=== PATIENT | male | born 1950 | race Caucasian/White ===

== ENCOUNTER 2018-01-18 07:43 | Day surgery (SDC) | payer MEDICARE, SELFPAY ==
[2018-01-18] VITALS (7 sets, daily range): BP systolic 91–131; BP diastolic 50–84; PULSE 45–59; RESP 16; TEMP 36.3–36.9; O2SAT 97–99; BMI 25.9
--- NOTE | 2018-01-18 09:00 | COLBX_PTH ---
PATIENT: ADENIKE HERNANDEZ LOC: EN U#:[id number] AGE/SX: 67/M ROOM: RE01/18/[address]: Dr. Eugenio Traylor MD : [id number] BED: DIS: 01/18/2018 SPEC #: [id number] RECD: 01/18/18 09:55 STATUS: YOLANDA RYANN #: [id number] ANAYELI: 01/18/18 09:[address]: Eugenio Traylor DEPT: SURGICAL PATHOLOGY RECD BY: Surendra Dueñas ENTERED: 01/18/18 10:16 SP TYPE: COLON BX OTHR DR: Dr. Horacio Shields MD Tissues: A - Transverse colon B - Descending colon Procedures: Surgery Specimen Level IV HEADER OPERATION: Colonoscopy PRE-OP DIAGNOSIS: Screening TISSUE SUBMITTED: A ? Mid transverse polyp, B ? Descending colon polyp biopsy MICROSCOPIC DIAGNOSIS A. Mid transverse colon polyp, biopsy: Fragments of fecal material. See comment. B. Descending colon polyp, biopsy: Fragment of colonic mucosa, no pathologic diagnosis. NELIDA:jojo 01/21/18 COMMENT A. Colonic mucosal tissue is not identified in the submitted specimen. MICROSCOPIC DESCRIPTION Slides are reviewed. GROSS DESCRIPTION A - Received in fixative is one container labeled with the patient's name and designated mid transverse polyp. The specimen consists of multiple irregular fragments of tran-brown material predominantly consists of fecal material that in aggregate measure 2 x 0.5 x 0.1 cm. The specimen is totally submitted in one cassette. B - Received in fixative is one container labeled with the patient's name and designated descending colon polyp biopsy. The specimen consists of one irregular fragment of light tran soft tissue that measures 0.6 x 0.2 x 0.1 cm. The specimen is totally submitted in one cassette. / NELIDA:jojo 01/18/18 TC:4 CPT: 46988 x2
--- NOTE | 2018-01-18 09:09 | PCM.OPRPT ---
Problem List (1) Screening for intestinal cancer Status: Acute Report of Operation Date of Procedure: 01/18/18 Pre-Operative Diagnosis: Screening for intestinal cancer Post-Operative Diagnosis: Scattered diverticulosis, sessile polyp of the transverse colon, diminutive polyp of the descending colon Surgery/Procedure Performed:: Colonoscopy with hot snare polypectomy and cold forceps biopsy Description of Surgical Findings:: Amount informed consent was obtained. 67-year-old gentleman taken to the endoscopy suite. He was placed in a left lateral decubitus position. 75 mg Demerol and 3.5 mg of Versed were given as intravenous sedation. Digital rectal exam performed. 2-3+ enlarged slightly firm prostate without focal mass noted. Moderate grade 2 internal hemorrhoids. Flexible colonoscope was inserted in the rectum and advanced through the sigmoid colon descending and transverse colon with ease. Some slight transabdominal pressure was required to get the scope to go to the cecum. Bowel prep was quite good. The cecum and ileocecal valve area was nicely achieved. The scope was then carefully withdrawn from the cecum and ascending colon. In the mid transverse colon a sessile semi-pedunculated polyp was identified. This measured about 9 mm. Photographs obtained. Hot snare cautery was used to resect and retrieved. The scope was then further withdrawn. There was some scattered diverticulosis noted throughout the colon but no areas of concentration. There was then a 4 mm sessile appearing polyp of the descending colon. This was very nonspecific. Cold soap forceps was used to sample and eradicate this area. The scope was further withdrawn without additional abnormality. The scope was retroflexed within the rectum hemorrhoidal changes noted no active bleeding. Excess fluid and air was aspirated free the procedure was completed with the patient tolerating it well. Impression Sessile polyps of the mid transverse colon and of the descending colon. Pathology pending. Minimal scattered diverticulosis The patient has not had a previous colonoscopy. Next colonoscopy recommended in 3 years pending pathology. The patient will proceed with his planned hernia repair. CC: Dr. NICKOLAS Shields Medications were given at 0851. The procedure was started at 0853. The cecum was reached at 0856.46. The procedure was completed at 0905.44. Eugenio Traylor M.D., F.A.C.S. Type of Anesthesia:: IV Sedation
== END 2018-01-18 10:33 | disposition home or self-care (01) ==
LOC: EN 07:44 → AC 07:46
PROVIDERS: Family Provider Family Medicine; PCP Family Medicine; Visit Provider Surgery
PROC: 0DJD8ZZ Inspection of Lower Intestinal Tract, Via Natural or Artificial Opening Endoscopic (ICD-10-PCS; CPT 45378; principal; 2018-01-18 08:40)
DX: Z12.11 Encounter for screening for malignant neoplasm of colon (principal); K57.90 Diverticulosis of intestine, part unspecified, without perforation or abscess without bleeding; K63.5 Polyp of colon; K64.8 Other hemorrhoids; K40.90 Unilateral inguinal hernia, without obstruction or gangrene, not specified as recurrent; K46.9 Unspecified abdominal hernia without obstruction or gangrene
CPT/HCPCS: 45384; 88305; 99152; 99153; J7120

== ENCOUNTER 2018-01-23 07:24 | Day surgery (SDC) | payer MEDICARE, SELFPAY ==
--- NOTE | 2018-01-18 05:45 | EKG12_ITS ---
Test Reason : PRE OP Blood Pressure : / mmHG Vent. Rate : 052 BPM Atrial Rate : 052 BPM P-R Int : 170 ms QRS Dur : 100 ms QT Int : 464 ms P-R-T Axes : 039 023 059 degrees QTc Int : 431 ms Sinus bradycardia Otherwise normal ECG No previous ECGs available Confirmed by EUGENE COLIN ([id number]), general expeditor JAIMIE YODER ([id number]) on 01/21/2018 2:55:36 PM Referred By: Eugenio Traylor Confirmed By:EUGENE COLIN
[2018-01-18 10:01] LABS: Hematocrit 42.2 % (40-54); Hemoglobin 14.3 g/dl (13.0-16.5); Mean Corp Hgb Conc 33.9 g/gl (32-36); Mean Corpuscular Hgb 29.2 pg (27.0-32.0); Mean Corpuscular Volume 86.1 fL (80-94); Mean Platelet Vol. 9.7 fl (6.2-12.0); Platelet Count 208 K/mm3 (150-450); RBC Distribution Width CV 12.9 % (11.6-14.6); RBC Distribution Width SD 40.6 fl (35.1-43.9); White Blood Count 5.1 K/mm3 (4.4-11.0)
[2018-01-18 10:03] LABS: Scan Indicated on CBC? Y/N NO
[2018-01-18 10:13] LABS: Anion Gap 4 (5-15); BUN 12 mg/dL (7-18); BUN/Creat Ratio 13.1 RATIO (10-20); Calcium,Total 8.6 mg/dL (8.5-10.1); Chloride 105 mmol/L (98-107); Creatinine, Serum 0.92 mg/dL (0.70-1.30); EST Glomerular Filtration Rate 87 mL/min (>60); Est Glom Filt Rate - Afr Amer 106 mL/min (>60); Glucose 144 mg/dL (74-106); Potassium 4.2 mmol/L (3.5-5.1); Sodium Level 138 mmol/L (136-145)
[2018-01-23 07:49] VITALS: BP 144/94; PULSE 65; RESP 16; TEMP 36.9; O2SAT 97; BMI 26.2
[2018-01-23 08:11] LABS: Partial Thromboplast Time 32.5 Seconds (24.1-36.2)
--- NOTE | 2018-01-23 08:48 | DCINST_ITS ---
Discharge Diet: Light diet - advance as tolerated - if you have questions about your diet instructions, please talk to you doctor. Discharge Activity: May Not Drive - for 1 week or while taking narcotic pain medicine. May shower in (days): 1 Lifting Restrictions: 10 pounds Call your doctor if your incision/area has: Continuous Slow Oozing, Sudden Increased Bleeding, Increased Pain/ Swelling, Increased Redness, Foul Smelling Discharge Call your doctor if you observe: Fever of 101 or Higher Suture Line Care: Avoid Pulling/Pushing, Avoid Pinching/Bending Additional Dressing/Incision Instructions:: Change or remove dressing in 4 days. Leave steri-strips in place for 1 week. Allergies/Adverse Reactions: Allergies No Known Allergies Allergy (Verified 01/18/18 08:35) Medications to take at Discharge Phenobarbital 64.8 mg PO DAILY 01/16/18 Hydrocodone Bitart/Apap 5-325 [Jackson 5MG-325MG] 1 tablet PO Q6H PRN PRN 3 Days # 10 tablet 01/23/18 The following prescriptions were given: Hydrocodone Bitart/Apap 5-325 [Jackson 5MG-325MG] 1 tablet PO Q6H PRN PRN 3 Days # 10 tablet PRN Reason: Pain Primary Care Physician: Horacio Shields MD [Primary Care Provider] - Please Follow Up With: Eugenio Traylor MD - [phone] When: Call to make an appointment to be seen in about 10 days.
[2018-01-23] MEDS: Cefazolin 2 GM in 0.9% Normal Saline 100 ML IV (08:52)
[2018-01-23] MEDS: Bupivacaine Mpf 0.5% 30 ML VIAL (09:48)
--- NOTE | 2018-01-23 09:53 | OP.PCM_ITS ---
Problem List (1) Left inguinal hernia Status: Acute Report of Operation Date of Procedure: 01/23/18 Pre-Operative Diagnosis: Left inguinal hernia Post-Operative Diagnosis: Indirect and direct left inguinal hernia Surgery/Procedure Performed:: Laparoscopic left inguinal herniorrhaphy Description of Surgical Findings:: Timeout and informed consent was obtained. 67-year-old gentleman was taken to the operating room. He was placed supine on the table. He underwent general endotracheal intubation anesthesia. Ancef 2 g were given intravenously preoperatively. The abdomen sterilely prepped draped. 0.5% Marcaine was used as local anesthetic. Total 30 cc was used. Skin sites were pre-anesthetized. A vertical infraumbilical incision created. Holding sutures of 0 Vicryl placed. Varies needle inserted. Saline drop test performed. The abdomen was insufflated with CO2 to a pressure of 10 mmHg pressure. Brooke trocar inserted. Brooke laparoscope inserted. Under visualization with no evidence any superficial abnormalities. The right groin appear to be solid and intact. There was evidence of a very large direct defect on the left with a smaller indirect defect. Five-minute trochars were placed in the right and left lower quadrant to direct visualization. A ileal inguinal nerve block was performed with Marcaine. The peritoneum superior lateral to the internal ring was incised and carried medially. Tediously the peritoneum was completely dissected free and was completely inverted from the direct sac. The indirect area also completely dissected free I dissected over past the midpoint of the pubic tubercle urinary bladder at the initiation was actually quite distended but I was able to safely dissected free bluntly. After very generously mobilizing the peritoneum was looking at the large direct and somewhat smaller indirect defects. I selected a Bard 3D max mesh lot number [id number] reference #[id number] with an expiry date of 03/26/2021. I placed that so as to nicely cover the defect areas. It appeared to have a very nice positional lie. I secured it laterally superiorly medially with secure strap. Lot number [id number] with an expiry date of 09/18/2019 [place] that I had excellent positioning of the mesh. The peritoneum was approximated to itself the secure strap and complete obliteration to the mesh was achieved. Trochars were removed under visualization. The abdomen was allowed to deflate of the CO2. The fascia at the umbilicus approximated with interrupted 0 Vicryl figure 8 suture. Skin edges approximated up to 4 Monocryl subdermal stitches. Steri-Strips Telfa and OpSite dressings applied. Sponge and instrument and needle counts were reported to the surgeon be correct. Blood loss was minimal. Specimens none. Drains none. He was taken to the recovery area in satisfactory condition Eugenio Traylor M.D., F.A.C.S. Type of Anesthesia:: General Anesthesiologist: Monae Carter
[2018-01-23 10:08] VITALS: BP 128/78; BP 144/94; PULSE 62; RESP 14; TEMP 36.6; O2SAT 98
[2018-01-23 10:15] VITALS: BP 127/74; BP 144/94; PULSE 64; RESP 14; O2SAT 100
[2018-01-23 10:30] VITALS: BP 129/82; BP 144/94; PULSE 63; RESP 16; O2SAT 98
[2018-01-23 10:47] VITALS: BP 143/83; BP 144/94; PULSE 69; RESP 16; TEMP 36.7; O2SAT 99
[2018-01-23 12:11] VITALS: BP 144/94; BP 168/82; PULSE 78; RESP 18; TEMP 36; O2SAT 98
== END 2018-01-23 12:11 | disposition home or self-care (01) ==
LOC: SDC 07:28 → AC 07:29
PROVIDERS: Family Provider Family Medicine; PCP Family Medicine; Visit Provider Surgery
PROC: (CPT 49650; principal; 2018-01-23 09:00)
DX: K40.90 Unilateral inguinal hernia, without obstruction or gangrene, not specified as recurrent (principal); K46.9 Unspecified abdominal hernia without obstruction or gangrene; R00.1 Bradycardia, unspecified
CPT/HCPCS: 00840; 49650; 36415; 80048; 85027; 85730; 93005; J7120; C1781; J2405

== ENCOUNTER → 2018-07-03 11:31 | Outpatient (CLI) | payer MEDICARE, SELFPAY ==
--- NOTE | 2018-07-03 11:35 | RAD_ITS ---
STUDY: X-RAY - UNILATERAL RIBS ( LEFT ) WITH CHEST REASON FOR EXAM: Male, 68 years old. Fall yesterday. Left lower posterior rib pain. TECHNIQUE - RIBS: 4 view(s) of the ribs. TECHNIQUE - CHEST: Single PA view. COMPARISON: None. FINDINGS - RIBS: Acute fractures of the left ninth and 10th posterior ribs. FINDINGS - CHEST: The lungs are clear and expanded. There is no demonstrated pleural abnormality. Normal size heart. Normal mediastinum and jeanne. Normal visualized pulmonary arteries. Normal visualized aortic arch and descending thoracic aorta. Normal visualized thoracic spine. Acute fractures of the left ninth and 10th posterior ribs. Normal clavicles and shoulders. There is no demonstrated abnormality of the visualized soft tissue structures of the upper abdomen. RAD/Ribs Uni Min 3V w/PA Chest IMPRESSION: RIBS: Acute fractures of the left ninth and 10th posterior ribs. CHEST: Normal x-ray examination of the chest. Electronically Signed: John Beltrán MD at 12:15 EST , Service support ,
== END ==
PROVIDERS: Family Provider Family Medicine; PCP Family Medicine; Referring Provider Family Medicine; Visit Provider Family Medicine
DX: R07.81 Pleurodynia (principal)
CPT/HCPCS: 71101

== ENCOUNTER → 2021-09-22 09:53 | Outpatient (CLI) | payer MEDICARE, SELFPAY ==
[2021-09-22 12:11] LABS: Hematocrit 41.4 % (40-54); Hemoglobin 14.2 g/dL (13.0-16.5); Mean Corp Hgb Conc 34.3 g/dL (32-36); Mean Corpuscular Hgb 29.6 pg (27.0-32.0); Mean Corpuscular Volume 86.4 fL (80-94); Mean Platelet Vol. 10.9 fl (6.2-12.0); Platelet Count 294 K/mm3 (150-450); RBC Distribution Width CV 12.5 % (11.6-14.6); RBC Distribution Width SD 39.6 fl (35.1-43.9); Red Blood Count 4.79 M/mm3 (4.6-6.2); White Blood Count 6.6 K/mm3 (4.4-11.0)
[2021-09-22 12:28] LABS: AST(SGOT) 15 U/L (15-37); Alanine Aminotransfer ALT/SGPT 28 U/L (16-61); Albumin, Serum 3.6 g/dL (3.2-5.0); Alkaline Phosphatase 57 U/L (45-117); Anion Gap 5 (5-15); BUN 16 mg/dL (7-18); BUN/Creat Ratio 16.4 RATIO (10-20); Calcium,Total 9.4 mg/dL (8.5-10.1); Chloride 101 mmol/L (98-107); Creatinine, Serum 0.97 mg/dL (0.70-1.30); EST Glomerular Filtration Rate 81 mL/min (>60); Est Glom Filt Rate - Afr Amer 98 mL/min (>60); Globulin 3.7 g/dL (2.2-4.2); Glucose 297 mg/dL (74-106); Potassium 4.1 mmol/L (3.5-5.1); Protein, Total 7.3 g/dL (6.4-8.2); Sodium Level 135 mmol/L (136-145)
== END ==
PROVIDERS: PCP Family Medicine
DX: G40.909 Epilepsy, unspecified, not intractable, without status epilepticus (principal)
CPT/HCPCS: 36415; 80053; 80184; 85027

== ENCOUNTER 2022-02-27 10:09 | Inpatient (IN) | payer MEDICARE, SELFPAY ==
[2022-02-27] VITALS (13 sets, daily range): BP systolic 131–182; BP diastolic 59–89; PULSE 52–95; RESP 12–18; TEMP 36.2–36.8; O2SAT 94–98; BMI 36.7; BMI 27.8; BMI 26.4
--- NOTE | 2022-02-27 10:15 | CT_ITS ---
STUDY: CT HEAD STROKE PROTOCOL W/O CONTRAST INJECTION REASON FOR EXAM: Male, 71 years old. Neuro deficit, acute, stroke suspected RADIATION DOSAGE (If Supplied By Facility): CTDIvol = ( ) mGy, DLP = ( ) mGycm TECHNIQUE: Transaxial CT imaging of the brain was performed without administration of intravenous contrast material. Individualized dose optimization techniques were used for this CT. COMPARISON: No relevant priors. FINDINGS: There is no demonstrated dense artery sign or sulcal effacement or parenchymal edema by CT criteria. An old lacunar infarct with cystic volume loss is present in the posterior medial aspect of the right thalamic lobe. Normal soft tissue structures. Normal calvarium. There is mild cerebral atrophy with widening of the extra-axial spaces and ventricular dilatation. Normal white matter tracts of the cerebral hemispheres. Normal basal ganglia. Normal brainstem. Normal cerebellum. There is no intracranial hemorrhage. There are no findings of an acute ischemic infarction. Normal visualized paranasal sinuses. ASPECT score: 10 CT/STROKE Brain/Head without Cont IMPRESSION: 1. Old right thalamic lacunar infarct 2. No demonstrated acute infarct or intracranial hemorrhage N.B. : The above Results were Read Back by Derek Lovell MD to brian farrell MD, and understanding confirmed on 02/27/2022 10:31:53 (ET). Electronically Signed: Derek Lovell MD at 10:33 EDT ,
--- NOTE | 2022-02-27 10:15 | CT_ITS ---
STUDY: CTA HEAD AND NECK WITH CONTRAST REASON FOR EXAM: Male, 71 years old. Neuro deficit, acute, stroke suspected RADIATION DOSAGE (If Supplied By Facility): CTDIvol = ( 26.38 ) mGy, DLP = ( 942.52 ) mGycm TECHNIQUE: CT angiography was performed with a multi-detector CT scanner. Data acquisition was obtained from the skull base through the vertex following intravenous administration of IV 100mL Isovue-370. MIP images were reconstructed from the axial data set. Post-processing of the angiographic images was performed, with multiplanar reformation and 3D reconstruction. Individualized dose optimization techniques were used for this CT. COMPARISON: Noncontrast head CT dated February 27, 2022 FINDINGS: Normal bilateral petrous carotid arteries. There is calcified plaque formation of the right cavernous carotid artery, with a mild stenosis (less than 50%). There is calcified plaque formation of the left cavernous carotid artery, without a cross-sectional luminal stenosis. Normal right A1 segments of the anterior cerebral artery. Normal left A1 segments of the anterior cerebral artery. Normal intact anterior communicating artery (ACOM). Normal bilateral A2 segments of the anterior cerebral arteries. Normal right M1 and M2 segments of the middle cerebral arteries, with a normal M1 bifurcation. There is irregularity of the left M1 and M2 branches with minimal luminal narrowing, suggesting atherosclerotic plaque formation, without an occlusion. Normal right posterior communicating artery (PCOM). There is non-visualization of the left posterior communicating artery (PCOM). Normal bilateral vertebral arteries. Normal basilar artery with a normal basilar bifurcation. The visualized bilateral superior cerebellar (SCA) arteries are normal. Normal bilateral P1, P2 and visualized P3 segments of the posterior cerebral arteries. There is no demonstrated aneurysm of the [place]. There is no demonstrated abnormality of the visualized brain. AORTIC ARCH: There is atherosclerotic calcific plaque formation of the aortic arch and great vessels arising from the aortic arch, without a hemodynamically significant stenosis. There is a normal origin of the brachiocephalic, left common carotid, and left subclavian arteries. Normal origins of the brachiocephalic, left common carotid, and left subclavian arteries. RIGHT CAROTID ARTERIES: Normal right common carotid artery (CCA). There is mild atherosclerotic plaque formation with minimal narrowing of the right carotid bulb. Normal origin of the right internal carotid (ICA) artery without a hemodynamically significant stenosis. Normal visualized cervical portion of the right internal carotid artery. Normal origin of the right external carotid artery (ECA). LEFT CAROTID ARTERIES: Normal left common carotid artery (CCA). Normal left common carotid bulb. Normal origin of the left internal carotid (ICA) artery without a hemodynamically significant stenosis. Normal visualized cervical portion of the left internal carotid artery. Normal origin of the left external carotid artery (ECA). VERTEBRAL ARTERIES: Normal bilateral vertebral arteries, with exception of mild atherosclerotic stenosis due to calcified plaque at the left vertebral artery/subclavian junction. CT/STROKE CTA Head AND Neck W/Con IMPRESSION: 1. No major intracranial arterial occlusion or hemodynamically significant stenosis 2. 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 Mild atherosclerotic stenosis of the left vertebral artery/subclavian arterial junction. 4. Mild atherosclerotic plaque and stenosis in the right carotid bulb. N.B. : The above Results were Read Back by Derek Lovell MD to brian farrell MD, and understanding confirmed on 02/27/2022 10:56:03 (ET). Electronically Signed: Derek Lovell MD at 10:57 EDT ,
--- NOTE | 2022-02-27 10:15 | EKG12_ITS ---
Test Reason : stroke Blood Pressure : / mmHG Vent. Rate : 068 BPM Atrial Rate : 068 BPM P-R Int : 204 ms QRS Dur : 100 ms QT Int : 422 ms P-R-T Axes : 051 009 058 degrees QTc Int : 448 ms Normal sinus rhythm Normal ECG Confirmed by EMRE THIBODEAUX, YOAN ([id number]), primer expeditor and drier RENE OROZCO ([id number]) on 02/28/2022 1:09:41 PM Referred By: Confirmed By:YOAN ANDREA MD
--- NOTE | 2022-02-27 10:16 | EDS_ITS ---
HPI History of Present Illness Chief Complaint: Neuro S/Sx Narrative Narrative: Patient woke up with symptoms. He woke up with some slurry speech and difficulty getting all his words out. He also has some right-sided facial droop. He woke up at 615 and went to bed around 10 PM. He showed up to the ED around 10 AM. No recent trauma. He is not anticoagulated, he has no weakness in his arms or legs. He has no vision changes. [facility] PFS Medical History Hernia Left inguinal hernia Seizure Home Medications phenobarbital 64.8 mg tablet 64.8 mg PO DAILY SEIZURES 01/16/18 [History Last Taken 01/23/18 06:30] Allergy/AdvReac Type Severity Reaction Status Date / Time No Known Allergies Allergy Verified 02/27/22 10:15 Family History Father CAD (coronary artery disease) Surgical History S/P appendectomy s/p laceration repair right arm S/P laparoscopic hernia repair (~12/2017) Social History Smoking Status: Never smoker ROS ROS ED ROS Narrative Past medical history: Reviewed, includes seizure disorder and hypertension. His blood sugar is quite high in the ED but he tells me he is not a diabetic to his knowledge. Medications: Reviewed Social history: Noncontributory Review of systems: All systems negative except as indicated General: No fever Eyes: No visual changes ENT: No upper airway congestion, normal voice. Right-sided facial droop Neck: No neck pain Cardiovascular: No chest pain Respiratory: No shortness of breath or cough Gastrointestinal: No abdominal pain, nausea vomiting or diarrhea Genitourinary: No dysuria Musculoskeletal: Denies myalgias no difficulty with ambulation Skin: No rash Neurological: As in HPI Psych: No recent behavioral changes Hematologic: No easy bleeding or easy bruising EXAM Physical Exam Narrative Exam Narrative: Physical exam General: Well nourished, Well developed, No Acute Distress Head: Normocephalic, Atraumatic Eyes: Conjunctiva not pale ENT: Moist mucous membranes Neck: Supple, Nontender, No lymphadenopathy Cardiovascular: Regular rate, Regular rhythm Respiratory: No distress, CTA bilaterally Abdomen: Soft, Nontender, Nondistended Back: Nontender, Normal Inspection. Negative for: CVA tenderness Extremities: Nontender, No edema Skin: Normal color, No rash Neurological: See NIH stroke scale Psychological: Normal affect Const Vital Signs: 02/27/22 10:11 02/27/22 10:35 02/27/22 10:35 Temperature 97.1 F L Temperature Source Temporal Pulse Rate 95 69 Respiratory Rate 15 13 Blood Pressure 182/89 H 165/86 H Blood Pressure Mean 120 112 Pulse Ox 97 97 Oxygen Delivery Method Room Air Room Air Room Air 02/27/22 10:45 Temperature Temperature Source Pulse Rate 56 L Respiratory Rate 12 Blood Pressure 175/59 H Blood Pressure Mean 97 Pulse Ox 96 Oxygen Delivery Method Room Air STROKE Vital Signs/Narrative: Vital Signs Temp Pulse Resp BP Pulse Ox O2 Del Method 02/27/22 10:45 56 L 12 175/59 H 96 Room Air 02/27/22 10:35 Room Air 02/27/22 10:35 69 13 165/86 H 97 Room Air 02/27/22 10:11 97.1 F L 95 15 182/89 H 97 Room Air NIHSS Initial: 1a Level of Consciousness: 0 1b LOC Questions (Score 2 if aphasic/stupor): 0 1c LOC Commands (Only score 1st attempt): 0 2 Best Gaze (If aphasic, use reflexive mvmts.): 0 3 Visual: 0 4 Facial Palsy: 1 5 Motor Arm Right (UN = amputation/fusion): 0 5 Motor Arm Left: 0 6 Motor Leg Right: 0 6 Motor Leg Left: 0 7 Limb ataxia (Only + if out of proportion): 0 8 Sensory (Aphasia/stupor=0 or 1, coma=2): 0 9 Best Language: 1 10 Dysarthria (mute, coma=2, intubated=UN): 1 11 Extinction and Inattention (only scored if +): 0 Total Score: 3 MDM MDM MDM Narrative Medical decision making narrative: Patient's work-up is unremarkable other than an old right thalamic lacunar infarct. He still has stroke symptoms, I discussed with stroke neurologist he does not meet criteria for tPA secondary to time of onset and wake-up stroke. Incidentally he is found to have a glucose of 324 and he tells me that he does not know he is a diabetic. This will also have to be addressed inpatient. I called for admission. Lab Data Labs: Laboratory Results - last 24 hr 02/27/22 02/27/22 02/27/22 10:10 10:10 10:10 WBC 8.0 RBC 5.26 Hgb 15.3 Hct 45.2 MCV 85.9 MCH 29.1 MCHC 33.8 RDW Std Deviation 39.2 RDW Coeff of Sang 12.6 Plt Count 285 MPV 11.0 Immature Gran % (Auto) 0.400 Neut % (Auto) 64.9 Lymph % (Auto) 27.0 Nance % (Auto) 6.5 Eos % (Auto) 0.6 Baso % (Auto) 0.6 Absolute Neuts (auto) 5.2 Absolute Lymphs (auto) 2.15 Nucleated RBC % 0 PT 11.6 L INR 0.9 APTT 31.7 Sodium 135 L Potassium 4.1 Chloride 99 Carbon Dioxide 28.0 Anion Gap 8 BUN 17 Creatinine 0.99 Estim Creat Clear Calc 66.21 Est GFR (MDRD) Af Amer 95 Est GFR (MDRD) Non-Af 79 BUN/Creatinine Ratio 17.1 Glucose 324 H Calcium 9.5 Troponin I High Sens 6 Radiography Diagnostic Testing: Clinical Impression(s) from Imaging Studies Brain CT 02/27/22 10:15 IMPRESSION: 1. Old right thalamic lacunar infarct 2. No demonstrated acute infarct or intracranial hemorrhage N.B. : The above Results were Read Back by Derek Lovell MD to diogo farrell MD, and understanding confirmed on 02/27/2022 10:31:53 (ET). Electronically Signed: Derek Lovell MD at 10:33 EDT , ADDENDUM: 02/27/22 1040 IMPRESSION: 1. Old right thalamic lacunar infarct 2. No demonstrated acute infarct or intracranial hemorrhage N.B. : The above Results were Read Back by Derek Lovell MD to diogo farrell MD, and understanding confirmed on 02/27/2022 10:31:53 (ET). Electronically Signed: Derek Lovell MD at 10:33 EDT , Head/Neck CTA 02/27/22 10:15 IMPRESSION: 1. No major intracranial arterial occlusion or hemodynamically significant stenosis 2. 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 Mild atherosclerotic stenosis of the left vertebral artery/subclavian arterial junction. 4. Mild atherosclerotic plaque and stenosis in the right carotid bulb. N.B. : The above Results were Read Back by Derek Lovell MD to diogo farrell MD, and understanding confirmed on 02/27/2022 10:56:03 (ET). Electronically Signed: Derek Lovell MD at 10:57 EDT , Critical Care Time Critical Care Time: Yes Critical care time (excluding procedures): 30-74 minutes and - (Critical care time of 35 minutes. I attest that I spent 35 minutes of critical care time with this patient, this included time at the bedside, time discussing with radiologist, neurologist and medicine doctors, time documenting. The patient suffered acute stroke and decisions about tPA and other i) Discharge Plan Triage Chief Complaint: Neuro S/Sx ED Provider: Diogo Farrell Dx/Rx/DC Orders Clinical Impression: Acute stroke due to ischemia, Acute hyperglycemia, Dysarthria Prescriptions: No Action phenobarbital 64.8 MG tablet 64.8 mg PO DAILY Primary Care Provider: Horacio Shields Referrals: Horacio Shields MD [Primary Care Provider] - 2 Days Disposition Disposition: Acute Care Hospital [facility]
[2022-02-27 10:28] LABS: Absolute Lymphocyte Count 2.15 X10^3/uL (0.83-4.51); Absolute Neutrophil Count 5.2 X10^3/uL (2.0-7.7); Basophil# 0.05 X10^3/uL; Basophil% 0.6 % (0-1); Eosinophil# 0.05 X10^3/uL; Eosinophils% 0.6 % (0-5); Hematocrit 45.2 % (40-54); Hemoglobin 15.3 g/dL (13.0-16.5); Lymphocyte # 2.15 X10^3/ul (0.83-4.51); Mean Corp Hgb Conc 33.8 g/dL (32-36); Mean Corpuscular Hgb 29.1 pg (27.0-32.0); Mean Corpuscular Volume 85.9 fL (80-94); Monocyte# 0.52 X10^3/uL; Monocyte% 6.5 % (0-10); NRBC Flagged by Analyzer 0 % (0-5); Neutrophil # 5.16 X10^3/uL (2.7-7.7); Neutrophil % 64.9 % (47-70); Platelet Count 285 K/mm3 (150-450); RBC Distribution Width CV 12.6 % (11.6-14.6); RBC Distribution Width SD 39.2 fl (35.1-43.9); Red Blood Count 5.26 M/mm3 (4.6-6.2)
[2022-02-27 10:40] LABS: International Normalized Ratio 0.9; Prothrombin Time (Protime)PT. 11.6 SECONDS (11.7-14.9)
[2022-02-27 10:41] LABS: Partial Thromboplast Time 31.7 Seconds (24.1-36.2)
--- NOTE | 2022-02-27 10:42 | RAD_ITS ---
STUDY: X-RAY CHEST REASON FOR EXAM: Male, 71 years old. Neuro deficit, acute, stroke suspected Presents this morning after slurred speech noticed by patient and family members. Aphasia noticed as well. Symptoms on wakening at 0615, unknown LKW, BGL 321 TECHNIQUE: Single AP portable view of the chest. COMPARISON: July 03, 2018 FINDINGS: The lungs are clear and expanded. There is no demonstrated pleural abnormality. Normal size heart. Normal mediastinum and ejanne. Normal visualized pulmonary arteries. There is atherosclerotic calcification of the aortic arch with tortuosity. Normal visualized thoracic spine. Normal visualized ribs, clavicles, and shoulders. There is no demonstrated abnormality of the visualized soft tissue structures of the upper abdomen. RAD/Chest 1 View IMPRESSION: No acute process Electronically Signed: Derek Lovell MD at 11:32 EDT ,
[2022-02-27 10:43] LABS: Anion Gap 8 (5-15); BUN 17 mg/dL (7-18); BUN/Creat Ratio 17.1 RATIO (10-20); Calcium,Total 9.5 mg/dL (8.5-10.1); Chloride 99 mmol/L (98-107); Creatinine, Serum 0.99 mg/dL (0.70-1.30); EST Glomerular Filtration Rate 79 mL/min (>60); Est Glom Filt Rate - Afr Amer 95 mL/min (>60); Estimated Creatinine Clearance 66.21 ml/min; Glucose 324 mg/dL (74-106); Potassium 4.1 mmol/L (3.5-5.1); Sodium Level 135 mmol/L (136-145); Troponin-I HS 6 pg/mL (3.0-78.0)
--- NOTE | 2022-02-27 11:54 | ECHOD_ITS ---
Reason For Study: TIA/CVA Procedure This was a 2D Doppler, Color Flow transthoracic echocardiogram. Exam performed portable in patient room. Left Ventricle Normal LV size. Left ventricular systolic function is normal. The estimated ejection fraction is 60 %. No regional wall motion abnormalities noted. Right Ventricle Normal RV size. Normal systolic function. Atria Normal left atrium. Normal right atrium. Bubble contrast study negative for right to left interatrial shunt. Mitral Valve Normal mitral valve. Tricuspid Valve Normal tricuspid valve. Trivial tricuspid valve insufficiency. Aortic Valve Normal aortic valve. Trisinus/trileaflet aortic valve. Pulmonic Valve Normal pulmonic valve. Great Vessels Normal aortic root. The pulmonary artery is normal size. Normal inferior vena cava. Pericardium/Pleural No pericardial effusion. Medication Performed a rapid injection of agitated mix of 9 cc saline and 1cc air to assess for atrial septal defect. MMode/2D Measurements & Calculations LVIDd: 4.7 cm IVSd: 1.1 cm Ao root diam: 3.1 cm LVIDs: 3.1 cm LVPWd: 1.1 cm RVDd: 3.6 cm FS: 33.2 % LAV(MOD-bp): 29.1 ml LVAd ap4: 29.1 cm2 SV(MOD-sp4): 51.7 ml LAV(MOD-bp) Indexed: 15.1 ml/m2 LVLd ap4: 7.9 cm LAV(MOD-sp2): 36.1 ml EDV(MOD-sp4): 87.7 ml LAV(MOD-sp4): 24.6 ml EDV(sp4-el): 90.5 ml LVAs ap4: 17.2 cm2 LVLs ap4: 6.8 cm ESV(MOD-sp4): 36.0 ml ESV(sp4-el): 36.7 ml EF(MOD-sp4): 59.0 % EF(sp4-el): 59.5 % SV(sp4-el): 53.9 ml LA A4 area: 12.3 cm2 LA dimension(2D): 3.9 cm RA A4 area: 9.8 cm2 Doppler Measurements & Calculations MV E max sloan: 52.0 cm/sec Lat Peak E' Sloan: 6.8 cm/sec Med Peak E' Sloan: 6.4 cm/sec MV A max sloan: 73.8 cm/sec E/E' lat: 7.7 E/E' med: 8.1 MV E/A: 0.70 Ao V2 max: 113.6 cm/sec LV V1 max: 100.2 cm/sec PA V2 max: 98.7 cm/sec Ao max P.2 mmHg LV V1 max P.0 mmHg Ao V2 mean: 73.1 cm/sec Ao mean P.4 mmHg Ao V2 VTI: 27.7 cm TR max sloan: 218.2 cm/sec TR max P.1 mmHg ECHO/Echo Complete Interpretation Summary Normal LV size. Left ventricular systolic function is normal. The estimated ejection fraction is 60 %. Bubble contrast study negative for right to left interatrial shunt. Trivial tricuspid valve insufficiency. Ordering Physician: Bennett Ferguson Referring Physician: Horacio Varela Performed By: Ebonie Almonte, TYRELL, RVT
--- NOTE | 2022-02-27 11:54 | MRI_ITS ---
We are attempting to reach an attending provider to discuss findings. An addendum with communication details will be sent when the communication is complete. EXAM: MR HEAD WITHOUT INTRAVENOUS CONTRAST CLINICAL INDICATION: CVA, RT FACIAL DROOP, ACUTE HYPERGLYCEMIA TECHNIQUE: Multiplanar and multisequence MR images of the brain were obtained without intravenous contrast. This report was created using Room n House report generation technology. COMPARISON: CT brain 02/27/2022 FINDINGS: BRAIN AND EXTRA-AXIAL SPACES: Restricted diffusion identified within the left side of the cayden consistent with acute/subacute brainstem infarct. Old lacunar infarct noted within the left thalamus. No intra- or extra-axial hemorrhage. No intracranial mass or mass effect. Ventricles are appropriate for age. No hydrocephalus. Basal cisterns are patent. SELLA: Normal. Normal sella turcica, pituitary gland, infundibular stalk, optic chiasm and hypothalamus. AUDITORY SYSTEM: Normal. The internal auditory canals are patent. BONES/JOINTS: Intact calvarium. SINUSES: Mucosal thickening of the paranasal sinuses noted. MASTOID AIR CELLS: Unremarkable as visualized. Clear. ORBITS: Unremarkable as visualized. Both globes, extraocular muscles, optic nerves and retrobulbar fat appear unremarkable. VASCULATURE: Unremarkable as visualized. Normal flow voids in the major intracranial circulation. MRI/Brain without Contrast IMPRESSION: 1. Acute/subacute left pontine infarct. 2. Old right thalamic lacunar infarct. Electronically Signed: Jaiden Guadalupe MD at 16:03 EDT ,
[2022-02-27 12:03] LABS: Hemoglobin A1c 10.6 % (3.8-5.6)
[2022-02-27 12:45] LABS: Bedside Glucose 273 mg/dL (74-106)
[2022-02-27] MEDS: Phenobarbital 32.4 MG Tablet 64.8 MG PO (13:04)
[2022-02-27] MEDS: Insulin Lispro 100 UNIT/ML INSULN.PEN SC ×2 (13:04→16:58)
[2022-02-27 13:26] LABS: Troponin-I HS 7 pg/mL (3.0-78.0)
--- NOTE | 2022-02-27 15:39 | PCM.HP.STD ---
[facility] - General General Date of Admission: 02/27/22 Date of Service: 02/27/22 Chief Complaint: Dysarthria HPI Narrative ADENIKE HERNANDEZ, is a 71 M who presents with dysarthria and unsteadiness. Patient awoke this way. Patient presented to the emergency room and underwent CTA of the head neck that showed no acute process. Patient was seen by [facility] neurology via videoconference who recommended additional stroke work-up with an echocardiogram and an MRI. Patient has never had a stroke before. Patient does have a remote history of seizure to which he chronically takes phenobarbital for and has been compliant with that. No evidence of any recent seizure activity. [facility] Medical History (Updated 02/27/22 @ 15:[address] Bennett Ferguson DO) Diabetes mellitus, type 2 Hernia Left inguinal hernia Seizure Home Medications phenobarbital 64.8 mg tablet 64.8 mg PO DAILY SEIZURES 01/16/18 [History Last Taken 02/26/22] Allergy/AdvReac Type Severity Reaction Status Date / Time No Known Allergies Allergy Verified 02/27/22 10:15 Family History (Updated 02/27/22 @ 15:[address] Bennett Ferguson DO) Father CAD (coronary artery disease) Other CVA (cerebral vascular accident) Surgical History S/P appendectomy s/p laceration repair right arm S/P laparoscopic hernia repair (~12/2017) Social History Smoking Status: Never smoker ROS ROS Narrative No diplopia. All review of systems were negative except as mentioned above in the history of present illness and the other review of systems. Vital Signs Vital Signs Vital Signs: 02/27/22 10:11 02/27/22 10:35 02/27/22 10:35 Temperature 36.2 C L Temperature Source Temporal Pulse Rate 95 69 Respiratory Rate 15 13 Blood Pressure 182/89 H 165/86 H Blood Pressure Mean 120 112 Blood Pressure Source Blood Pressure Position Blood Pressure Location Pulse Ox 97 97 Oxygen Delivery Method Room Air Room Air Room Air 02/27/22 10:45 02/27/22 11:13 02/27/22 11:17 Temperature 36.3 C L Temperature Source Temporal Pulse Rate 56 L 52 L 57 L Respiratory Rate 12 13 14 Blood Pressure 175/59 H 142/83 H 146/68 H Blood Pressure Mean 97 102 94 Blood Pressure Source Blood Pressure Position Blood Pressure Location Pulse Ox 96 97 98 Oxygen Delivery Method Room Air Room Air Room Air 02/27/22 11:30 02/27/22 11:58 02/27/22 12:02 Temperature 36.8 C Temperature Source Oral Pulse Rate 53 L 52 L 60 Respiratory Rate 16 16 Blood Pressure 131/78 H 154/85 H Blood Pressure Mean 95 108 Blood Pressure Source Monitor Blood Pressure Position Semi-Fowlers Blood Pressure Location Right Arm Pulse Ox 98 96 Oxygen Delivery Method Room Air Room Air 02/27/22 12:00 Temperature Temperature Source Pulse Rate Respiratory Rate Blood Pressure Blood Pressure Mean Blood Pressure Source Blood Pressure Position Blood Pressure Location Pulse Ox Oxygen Delivery Method Room Air Weight Weight: 83.5 kg Body Mass Index (BMI) 26.4 Physical Exam Const alert and no apparent distress HEENT HEENT Narrative: Right facial droop Eyes PERRL and EOMs intact bilaterally Neck no lymphadenopathy Resp normal respiratory effort, no retractions, no use of accessory muscles and clear to auscultation bilaterally Cardio regular rate, regular rhythm, S1 normal heart sound and S2 normal heart sound GI normal to inspection, nondistended, normoactive bowel sounds, soft to palpation, non-tender and non-distended Extremity normal to inspection Neuro oriented x3, CN's II-XII intact bilaterally, moves all extremities and no focal motor deficits Neuro Narrative: Ataxia on the right upper extremity Sensorium / Orientation: awake Results Lab / Micro Data Result Diagrams: 02/27/22 10:10 02/27/22 10:10 Labs: Laboratory Results - last 24 hr 02/27/22 10:10: WBC 8.0, RBC 5.26, Hgb 15.3, Hct 45.2, MCV 85.9, MCH 29.1, MCHC 33.8, RDW Std Deviation 39.2, RDW Coeff of Sang 12.6, Plt Count 285, MPV 11.0, Immature Gran % (Auto) 0.400, Neut % (Auto) 64.9, Lymph % (Auto) 27.0, Wilkes % (Auto) 6.5, Eos % (Auto) 0.6, Baso % (Auto) 0.6, Absolute Neuts (auto) 5.2, Absolute Lymphs (auto) 2.15, Nucleated RBC % 0 02/27/22 10:10: PT 11.6 L, INR 0.9, APTT 31.7 02/27/22 10:10: Sodium 135 L, Potassium 4.1, Chloride 99, Carbon Dioxide 28.0, Anion Gap 8, BUN 17, Creatinine 0.99, Estim Creat Clear Calc 66.21, Est GFR (MDRD) Af Amer 95, Est GFR (MDRD) Non-Af 79, BUN/Creatinine Ratio 17.1, Glucose 324 H, Calcium 9.5, Troponin I High Sens 6 02/27/22 10:10: Hemoglobin A1c 10.6 H 02/27/22 12:25: POC Glucose 273 H 02/27/22 13:02: Troponin I High Sens [address] 02/27/22 10:15 IMPRESSION: 1. Old right thalamic lacunar infarct 2. No demonstrated acute infarct or intracranial hemorrhage N.B. : The above Results were Read Back by Derek Lovell MD to brian farrell MD, and understanding confirmed on 02/27/2022 10:31:53 (ET). Electronically Signed: Derek Lovell MD at 10:33 EDT , ADDENDUM: 02/27/22 1040 IMPRESSION: 1. Old right thalamic lacunar infarct 2. No demonstrated acute infarct or intracranial hemorrhage N.B. : The above Results were Read Back by Derek Lovell MD to brian farrell MD, and understanding confirmed on 02/27/2022 10:31:53 (ET). Electronically Signed: Derek Lovell MD at 10:33 EDT , Head/Neck CTA 02/27/22 10:15 IMPRESSION: 1. No major intracranial arterial occlusion or hemodynamically significant stenosis 2. 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 Mild atherosclerotic stenosis of the left vertebral artery/subclavian arterial junction. 4. Mild atherosclerotic plaque and stenosis in the right carotid bulb. N.B. : The above Results were Read Back by Derek Lovell MD to brian farrell MD, and understanding confirmed on 02/27/2022 10:56:03 (ET). Electronically Signed: Derek Lovell MD at 10:57 EDT , ADDENDUM: 02/27/22 1104 IMPRESSION: 1. No major intracranial arterial occlusion or hemodynamically significant stenosis 2. 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 Mild atherosclerotic stenosis of the left vertebral artery/subclavian arterial junction. 4. Mild atherosclerotic plaque and stenosis in the right carotid bulb. N.B. : The above Results were Read Back by Derek Lovell MD to brian farrell MD, and understanding confirmed on 02/27/2022 10:56:03 (ET). Electronically Signed: Derek Lovell MD at 10:57 EDT , Chest X-Ray 02/27/22 10:42 IMPRESSION: No acute process Electronically Signed: Derek Lovell MD at 11:32 EDT , Echocardiogram 02/27/22 11:54 Interpretation Summary Normal LV size. Left ventricular systolic function is normal. The estimated ejection fraction is 60 %. Bubble contrast study negative for right to left interatrial shunt. Trivial tricuspid valve insufficiency. Ordering Physician: Bennett Ferguson Referring Physician: Horacio Varela Performed By: Ebonie Almonte RDCS, RVT Assessment & Plan Assessment/Plan (1) Acute stroke due to ischemia: PLAN: CTA of the head neck was negative 2D echocardiogram performed today shows an EF 60% and negative for any right to left interatrial shunt MRI pending, check fasting lipid panel. PT OT evaluate and treat Aspirin, statin (2) Diabetes mellitus, type 2: PLAN: Has had elevated blood sugars in the past. Does not take anything for diabetes. Sliding-scale insulin for now Check an A1c (3) Seizure: PLAN: Remote history of seizures in the 1970s. Has been continued on phenobarbital ever since. Sees neurology in [place]. PLAN: Plan VTE prophylaxis with enoxaparin CODE STATUS: Addressed with the patient. Patient wishes to be DNR Comfort Care arrest. Advised patient that he can change his mind CODE STATUS at any point. Charges/Coding Visit Charges Inpatient E&M: 04083 Init Hosp L3
--- NOTE | 2022-02-27 16:43 | TELEMED_ITS ---
[facility] Telemed has confirmed receipt of a request for visit. This document confirms receipt of the order initiating the consult. To find the results of the consultation, please view the patient's reports for the scanned Telemed Consult.
[2022-02-27 17:20] LABS: Bedside Glucose 242 mg/dL (74-106)
[2022-02-27] MEDS: Atorvastatin Calcium 80 MG Tablet PO (21:04)
[2022-02-27 22:16] LABS: Bedside Glucose 205 mg/dL (74-106)
[2022-02-28] VITALS (10 sets, daily range): BP systolic 136–182; BP diastolic 74–105; PULSE 47–95; RESP 15–18; TEMP 36.2–36.9; O2SAT 93–98; BMI 26.4
[2022-02-28] MEDS: Insulin Lispro 100 UNIT/ML INSULN.PEN SC ×2 (06:35→11:26)
[2022-02-28 06:56] LABS: Cholesterol 259 mg/dL (200); High Density Lipoprotein 35 mg/dL; Triglycerides 282 mg/dL; Very Low Density Lipoprotein 56 mg/dL (5-40)
[2022-02-28 07:20] LABS: Bedside Glucose 219 mg/dL (74-106)
--- NOTE | 2022-02-28 08:17 | PCM.PN.HOSP ---
Subjective Subjective Feeling better. Objective Data Objective Data Vital Signs: Vital Signs Temp Pulse Resp BP Pulse Ox O2 Del Method 36.7 C 70 16 146/105 H 93 Room Air 02/28/22 06:30 02/28/22 07:00 02/28/22 06:30 02/28/22 06:30 02/28/22 07:41 02/28/22 08:02 Oxygen Delivery Method Room Air Weight: 83.5 kg Body Mass Index (BMI) 26.4 Intake & Output: Intake and Output for Last 24 Hours 02/26/22 02/27/22 02/28/22 23:59 23:59 23:59 Intake Total 250 / 550 500 / 500 Balance 250 / 550 500 / 500 Lab / Micro Data Result Diagrams: 02/27/22 10:10 02/27/22 10:10 Labs: Laboratory Results - last 24 hr 02/27/22 10:10: WBC 8.0, RBC 5.26, Hgb 15.3, Hct 45.2, MCV 85.9, MCH 29.1, MCHC 33.8, RDW Std Deviation 39.2, RDW Coeff of Sang 12.6, Plt Count 285, MPV 11.0, Immature Gran % (Auto) 0.400, Neut % (Auto) 64.9, Lymph % (Auto) 27.0, Baxter % (Auto) 6.5, Eos % (Auto) 0.6, Baso % (Auto) 0.6, Absolute Neuts (auto) 5.2, Absolute Lymphs (auto) 2.15, Nucleated RBC % 0 02/27/22 10:10: PT 11.6 L, INR 0.9, APTT 31.7 02/27/22 10:10: Sodium 135 L, Potassium 4.1, Chloride 99, Carbon Dioxide 28.0, Anion Gap 8, BUN 17, Creatinine 0.99, Estim Creat Clear Calc 66.21, Est GFR (MDRD) Af Amer 95, Est GFR (MDRD) Non-Af 79, BUN/Creatinine Ratio 17.1, Glucose 324 H, Calcium 9.5, Troponin I High Sens 6 02/27/22 10:10: Hemoglobin A1c 10.6 H 02/27/22 12:25: POC Glucose 273 H 02/27/22 13:02: Troponin I High Sens 7 02/27/22 16:58: POC Glucose 242 H 02/27/22 21:07: POC Glucose 205 H 02/28/22 05:25: Triglycerides 282 H, Cholesterol 259 H, LDL Cholesterol 168 H, VLDL Cholesterol 56 H, HDL Cholesterol 35 L 02/28/22 06:31: POC Glucose 219 H Radiography Diagnostic Testing: Radiology Impression Brain CT 02/27/22 10:15 IMPRESSION: 1. Old right thalamic lacunar infarct 2. No demonstrated acute infarct or intracranial hemorrhage N.B. : The above Results were Read Back by Derek Lovell MD to brian farrell MD, and understanding confirmed on 02/27/2022 10:31:53 (ET). Electronically Signed: Derek Lovell MD at 10:33 EDT , ADDENDUM: 02/27/22 1040 IMPRESSION: 1. Old right thalamic lacunar infarct 2. No demonstrated acute infarct or intracranial hemorrhage N.B. : The above Results were Read Back by Derek Lovell MD to brian farrell MD, and understanding confirmed on 02/27/2022 10:31:53 (ET). Electronically Signed: Derek Lovell MD at 10:33 EDT , Head/Neck CTA 02/27/22 10:15 IMPRESSION: 1. No major intracranial arterial occlusion or hemodynamically significant stenosis 2. 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 Mild atherosclerotic stenosis of the left vertebral artery/subclavian arterial junction. 4. Mild atherosclerotic plaque and stenosis in the right carotid bulb. N.B. : The above Results were Read Back by Derek Lovell MD to brian farrell MD, and understanding confirmed on 02/27/2022 10:56:03 (ET). Electronically Signed: Derek Lovell MD at 10:57 EDT , ADDENDUM: 02/27/22 1104 IMPRESSION: 1. No major intracranial arterial occlusion or hemodynamically significant stenosis 2. 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 Mild atherosclerotic stenosis of the left vertebral artery/subclavian arterial junction. 4. Mild atherosclerotic plaque and stenosis in the right carotid bulb. N.B. : The above Results were Read Back by Derek Lovell MD to brian farrell MD, and understanding confirmed on 02/27/2022 10:56:03 (ET). Electronically Signed: Derek Lovell MD at 10:57 EDT , Chest X-Ray 02/27/22 10:42 IMPRESSION: No acute process Electronically Signed: Derek Lovell MD at 11:32 EDT , Brain MRI 02/27/22 11:54 IMPRESSION: 1. Acute/subacute left pontine infarct. 2. Old right thalamic lacunar infarct. Electronically Signed: Jaiden Guadalupe MD at 16:03 EDT , ADDENDUM: 02/27/22 1638 IMPRESSION: 1. Acute/subacute left pontine infarct. 2. Old right thalamic lacunar infarct. N.B. : The above Results were Read Back by Jaiden Guadalupe MD to Diana Llanos RN, and understanding confirmed on 02/27/2022 16:31:41 (ET). Electronically Signed: Jaiden Guadalupe MD at 16:03 EDT , Echocardiogram 02/27/22 11:54 Interpretation Summary Normal LV size. Left ventricular systolic function is normal. The estimated ejection fraction is 60 %. Bubble contrast study negative for right to left interatrial shunt. Trivial tricuspid valve insufficiency. Ordering Physician: Bennett Ferguson Referring Physician: Horacio Varela Performed By: Ebonie Almonte, TYRELL, RVT Physical Exam Const alert and no apparent distress Resp normal respiratory effort, no retractions, no use of accessory muscles and clear to auscultation bilaterally Cardio regular rate, regular rhythm, S1 normal heart sound and S2 normal heart sound GI normal to inspection, nondistended, normoactive bowel sounds, soft to palpation, non-tender and non-distended Assessment & Plan Assessment/Plan (1) Acute stroke due to ischemia: PLAN: MRI brain showed acute/subacute left pontine infarct 2D echocardiogram performed today shows an EF 60% and negative for any right to left interatrial shunt Aspirin, statin (goal LDL 70) Neuro recommends: 90 days of clopidogrel, ambulatory vehicle monitor technician, outpt MACI eval Plan for acute rehab. (2) Diabetes mellitus, type 2: PLAN: Has had elevated blood sugars in the past. Does not take anything for diabetes. Sliding-scale insulin for now A1c 10.6 start glyburide will need glucometer, lancets and testing strips upon discharge (3) Seizure: PLAN: Remote history of seizures in the 1970s. Has been continued on phenobarbital ever since. Sees neurology in [place]. PLAN: Plan VTE prophylaxis with enoxaparin CODE STATUS: Addressed with the patient. Patient wishes to be DNR Comfort Care arrest. Advised patient that he can change his mind CODE STATUS at any point. Charges/Coding Visit Charges Inpatient E&M: 23356 Subs Hosp L2
[2022-02-28 08:51] LABS: Bedside Glucose 321 mg/dL (74-106)
[2022-02-28] MEDS: Aspirin 81 MG TAB.CHEW PO (09:21)
[2022-02-28] MEDS: Phenobarbital 32.4 MG Tablet 64.8 MG PO (09:21)
[2022-02-28] MEDS: Clopidogrel Bisulfate 75 MG Tablet PO (09:21)
[2022-02-28] MEDS: Enoxaparin 40 MG/0.4 ML Syringe SC (09:21)
--- NOTE | 2022-02-28 09:30 | CASEMGMT ---
RN CM Face to Face with patient for initial transition planning/care coordination assessment. RN CM introduced self and role at [facility]. Patient lying in bed, alert and oriented, daughter and significant other at bedside. Patient willing to participate in assessment and is able to answer all questions appropriately. Care providers, pharmacy, and demographics verified. Patient wishes to discharge home. Discussed possible HHC at discharge and walker. Will monitor progress with therapy. Patient states he has no further needs or concerns at this time. CM to follow for discharge planning needs that may arise. PCP: [facility] Specialists: [facility] Preferred Pharmacy: [facility] Insurance: [employer] Source Prescription Benefit: none Living Will/HPOA: yes, daughter Dasha, HPOA LNOK: daughter, son, DIL, significant other Living Arrangements: Patient lives alone in a single story home with 2 steps and railing to enter the home. Laundry is in the basement. Patient states he was independent at home prior to current hospitalization Transportation: self, significant other, son, DIL DME/HHC: Patient states he has grab bars at home. Patient would benefit from walker at discharge. Patient states no preferences for DME. CM to assist with walker at discharge. Will monitor progress with therapy for possible HHC. Disposition Plan: Patient to discharge home with family support and follow-up plans in place. Will monitor for HHC pending progress with therapy. Katelyn DIGGS, RN, CM
--- NOTE | 2022-02-28 10:48 | CASEMGMT ---
Addendum entered by Katelyn Andrade 02/28/22 15:45: Per previous note, pt scored a 3 and the scoring indicates none/minimal depression. Original Note: Social Work Note Pt with Stroke. SW in to speak with pt to complete PHQ-9. Pt has guest present in room. Pt gave permission for this worker to speak to him in front of his guest. Pt completed PHQ-9. Pt scored a 3. Pt states that he has no Mental Health History. Pt states that he does not need counseling agency resources. SW PHQ-9 documentation. Katelyn Andrade MICROSOFT SYSTEMS ENGINEER, [employer] ELECT[employer]ES SUPERVISOR
--- NOTE | 2022-02-28 11:09 | CASEMGMT ---
Referral to [facility] Patient link for Hgb A1C and new onset DM. Katelyn GODINEZ CM
[2022-02-28 12:05] LABS: Bedside Glucose 277 mg/dL (74-106)
--- NOTE | 2022-02-28 12:58 | CASEMGMT ---
Per therapy, pt would be a good candidate for IP rehab at discharge. Pt/family agreeable and call to [facility] in IP rehab to notify. Dr. Marty talley. Katelyn GODINEZ CM
--- NOTE | 2022-02-28 15:41 | DCINST_ITS ---
Discharge Instructions Diet Discharge Diet: Low fat / Low cholesterol and 2000 Calorie Control Diet Dressing / Incision Call your doctor if you observe: Numbness or Tingling (unilateral weakness. ) Follow Up Care Test Results: Test results from this visit will be discussed in further detail at your follow- up appointment, if applicable. Discharge Plan Admission Admit Date/Time: 02/27/22 11:02 Primary Reason for Your Visit: stroke Attending Provider: Bennett Ferguson Primary Care Provider: Horacio Varela Discharge Orders/Prescriptions Prescriptions: New atorvastatin 40 mg Tablet 40 mg PO QHS Qty: 0 0RF clopidogrel 75 mg Tablet 75 mg PO DAILY Qty: 0 0RF aspirin 81 mg Tablet,Chewable 81 mg PO BREAKFAST Qty: 0 0RF glyburide 5 mg Tablet 10 mg PO BREAKFAST Qty: 60 0RF insulin lispro [Humalog KwikPen Insulin] 100 unit/mL Insulin Pen See Protocol subcut TIDAC Qty: 15 0RF Protocol: 3. Sliding Scale Insulin Med Dosing Condition: 150-189 mg/dl = 1 unit Condition: 190-229 mg/dl = 2 units Condition: 230-269 mg/dl = 3 units Condition: 270-309 mg/dl = 4 units Condition: 310-349 mg/dl = 5 units Condition: 350-399 mg/dl = 6 units Condition: 400-449 mg/dl = 7 units Condition: Greater than 449 call physician Protocol Text: - Use for Total Daily Dose of Insulin 37-55 units - Obsese, infected, or steroid patients MEDIUM DOSING ALGORITHIM Continued phenobarbital 64.8 MG tablet 64.8 mg PO DAILY Other Ambulatory Orders: 30 Day Event Recorder Preventi (Urgent) Location: None Selected Ordered By: Dr. Bennett Ferguson Referrals / Follow Up: Horacio Shields MD [STAFF PHYSICIAN] - 2 Days Horacio Varela MD [Primary Care Provider] - Within 2 Weeks Jean Rowell MD [NON-STAFF] - Within 3 Months (CVA) Disposition Disposition (needs filled in before D/C Order can be placed): Inpatient Rehab Unit/Facility
--- NOTE | 2022-02-28 15:46 | DS.PCM_ITS ---
Providers Date of Admission: 02/27/22 Primary Care Physician: Dr. Horacio Varela MD Reason For Visit: RIGHT FACIAL DROOP, DYSARTHRIA Diagnosis Discharge Diagnosis (1) Acute stroke due to ischemia: Status: Acute Code(s): I63.9 - Cerebral infarction, unspecified Plan: MRI brain showed acute/subacute left pontine infarct 2D echocardiogram performed today shows an EF 60% and negative for any right to left interatrial shunt Aspirin, statin (goal LDL 70) Neuro recommends: 90 days of clopidogrel, ambulatory residential caregiver, outpt MACI eval Plan for acute rehab. (2) Diabetes mellitus, type 2: Status: Acute Code(s): E11.9 - Type 2 diabetes mellitus without complications Plan: Has had elevated blood sugars in the past. Does not take anything for diabetes. Sliding-scale insulin for now A1c 10.6 start glyburide will need glucometer, lancets and testing strips upon discharge (3) Seizure: Status: Acute Code(s): R56.9 - Unspecified convulsions Plan: Remote history of seizures in the 1970s. Has been continued on phenobarbital ever since. Sees neurology in [place]. Plan VTE prophylaxis with enoxaparin CODE STATUS: Addressed with the patient. Patient wishes to be DNR Comfort Care arrest. Advised patient that he can change his mind CODE STATUS at any point. Medications at Discharge Home Medications phenobarbital 64.8 mg tablet 64.8 mg PO DAILY SEIZURES 01/16/18 aspirin 81 mg chewable tablet 81 mg PO BREAKFAST #0 tabs 02/28/22 atorvastatin 40 mg tablet 40 mg PO QHS #0 tabs 02/28/22 clopidogrel 75 mg tablet 75 mg PO DAILY #0 tabs 02/28/22 glyburide 5 mg tablet 10 mg PO BREAKFAST #60 tabs 02/28/22 insulin lispro 100 unit/mL subcutaneous pen (Humalog KwikPen (U-100) Insulin) Se e Protocol subcut TIDAC #15 mL 02/28/22 Hospital Course Procedures 2-D Echocardiogram Summary of Care Provided Minutes Spent on Discharge: 33 Weight / BMI Weight Weight: 83.5 kg Body Mass Index (BMI) 26.4 ABG / Lab / Microbiology Data Result Diagrams: 02/27/22 10:10 02/27/22 10:10 Laboratory: Laboratory Results - last 24 hr 02/27/22 10:12: POC Glucose 321 H 02/27/22 16:58: POC Glucose 242 H 02/27/22 21:07: POC Glucose 205 H 02/28/22 05:25: Triglycerides 282 H, Cholesterol 259 H, LDL Cholesterol 168 H, VLDL Cholesterol 56 H, HDL Cholesterol 35 L 02/28/22 06:31: POC Glucose 219 H 02/28/22 11:26: POC Glucose 277 H Radiography Diagnostic Testing: Radiology Impression Brain MRI 02/27/22 11:54 IMPRESSION: 1. Acute/subacute left pontine infarct. 2. Old right thalamic lacunar infarct. Electronically Signed: Jaiden Guadalupe MD at 16:03 EDT , ADDENDUM: 02/27/22 1638 IMPRESSION: 1. Acute/subacute left pontine infarct. 2. Old right thalamic lacunar infarct. N.B. : The above Results were Read Back by Jaiden Guadalupe MD to Diana Llanos RN, and understanding confirmed on 02/27/2022 16:31:41 (ET). Electronically Signed: Jaiden Guadalupe MD at 16:03 EDT , D/C Instructions Discharge Diet: Low fat / Low cholesterol and 2000 Calorie Control Diet Call your doctor if you observe: Numbness or Tingling (unilateral weakness. ) Meaningful Use Info Meaningful Use Diagnoses (Choose all that apply): Ischemic CVA CVA Therapy Assessed for PT,OT and/or ST?: Yes Ischemic Stroke Antithrombotic order at d/c?: Yes Dx of Atrial fib/flutter?: No Anticoagulant at discharge?: No Reason anticoagulant not ordered: Medical Contraindication Statins at discharge?: Yes Primary Dx Acute Ischemic CVA?: Yes IV tPA ordered during stay?: No Reason IV t-PA not ordered: Medical Contraindication Discharge Plan Admission Admit Date/Time: 02/27/22 11:02 Primary Reason for Your Visit: stroke Attending Provider: Bennett Ferguson Primary Care Provider: Horacio Varela Discharge Orders/Prescriptions Prescriptions: New atorvastatin 40 mg Tablet 40 mg PO QHS Qty: 0 0RF clopidogrel 75 mg Tablet 75 mg PO DAILY Qty: 0 0RF aspirin 81 mg Tablet,Chewable 81 mg PO BREAKFAST Qty: 0 0RF glyburide 5 mg Tablet 10 mg PO BREAKFAST Qty: 60 0RF insulin lispro [Humalog KwikPen Insulin] 100 unit/mL Insulin Pen See Protocol subcut TIDAC Qty: 15 0RF Protocol: 3. Sliding Scale Insulin Med Dosing Condition: 150-189 mg/dl = 1 unit Condition: 190-229 mg/dl = 2 units Condition: 230-269 mg/dl = 3 units Condition: 270-309 mg/dl = 4 units Condition: 310-349 mg/dl = 5 units Condition: 350-399 mg/dl = 6 units Condition: 400-449 mg/dl = 7 units Condition: Greater than 449 call physician Protocol Text: - Use for Total Daily Dose of Insulin 37-55 units - Obsese, infected, or steroid patients MEDIUM DOSING ALGORITHIM Continued phenobarbital 64.8 MG tablet 64.8 mg PO DAILY Other Ambulatory Orders: 30 Day Event Recorder Preventi (Urgent) Location: None Selected Ordered By: Dr. Bennett Ferguson Referrals / Follow Up: Horacio Shields MD [STAFF PHYSICIAN] - 2 Days Horacio Varela MD [Primary Care Provider] - Within 2 Weeks Jean Rowell MD [NON-STAFF] - Within 3 Months (CVA) Disposition Disposition (needs filled in before D/C Order can be placed): Inpatient Rehab Unit/Facility Charges/Coding Visit Charges Inpatient E&M: 26230 Disch Hosp
--- NOTE | 2022-02-28 16:36 | CASEMGMT ---
Social Work Note Pt accepted to [facility] and can discharge to [facility] today. SW in to speak with pt and pt's family present. SW updated pt and pt's family that pt will discharge to [facility] today. Pt and pt's family state understanding. Plan: [facility] today Katelyn Andrade INDUCTOR TESTER, LOAN WORKOUT OFFICER
[2022-02-28 17:00] LABS: Bedside Glucose 117 mg/dL (74-106)
--- NOTE | 2022-02-28 17:21 | NURSING ---
Called report to nurse Quiros on rehab unit
== END 2022-02-28 18:04 | DRG 66 ==
LOC: ED 11:06 → PCU 11:25
PROVIDERS: Emergency Provider Emergency Medicine; PCP Family Medicine
DX: I63.12 Cerebral infarction due to embolism of basilar artery (principal); E11.65 Type 2 diabetes mellitus with hyperglycemia; G40.909 Epilepsy, unspecified, not intractable, without status epilepticus; Z79.4 Long term (current) use of insulin; I10 Essential (primary) hypertension; R47.1 Dysarthria and anarthria; R47.81 Slurred speech; R29.703 NIHSS score 3; R29.810 Facial weakness; Z66 Do not resuscitate; Z79.02 Long term (current) use of antithrombotics/antiplatelets; Z79.84 Long term (current) use of oral hypoglycemic drugs; Z79.899 Other long term (current) drug therapy
CPT/HCPCS: 36415; 70450; 70496; 70498; 70551; 71045; 80048; 80061; 82962; 83036; 84484; 85025; 85610; 85730; 92507; 92523; 93005; 93306; 94762; 97110; 97116; 97162; 97166; 97535; 99283; Q9967; A4216

== ENCOUNTER 2022-02-28 18:15 | Inpatient (IN) | payer MEDICARE, SELFPAY ==
[2022-02-28 18:26] VITALS: BP 124/76; PULSE 59; RESP 18; TEMP 36.8; O2SAT 97; BMI 26.4
[2022-02-28 19:06] VITALS: BP 118/69; PULSE 63; RESP 18; TEMP 36.7; O2SAT 95
[2022-02-28 21:00] VITALS: BMI 26.4
[2022-02-28] MEDS: Senna/Docusate Sodium 1 Tablet 2 TABLET PO (21:20)
[2022-02-28] MEDS: Atorvastatin Calcium 40 MG Tablet PO (21:21)
[2022-02-28 21:30] VITALS: PULSE 63; RESP 18; O2SAT 95
[2022-02-28 21:46] LABS: Bedside Glucose 275 mg/dL (74-106)
--- NOTE | 2022-03-01 04:00 | NURSING ---
Reviewed and agree with CAR PRE COOLER documentation and assessment charting.
[2022-03-01] MEDS: Enoxaparin 40 MG/0.4 ML Syringe SC (06:34)
[2022-03-01 07:25] LABS: Bedside Glucose 205 mg/dL (74-106)
[2022-03-01 07:51] VITALS: O2SAT 94
[2022-03-01 07:56] VITALS: BP 141/75; PULSE 56; RESP 18; TEMP 36.5; O2SAT 96
[2022-03-01] MEDS: Aspirin 81 MG TAB.CHEW PO (08:07)
[2022-03-01] MEDS: NYSTATIN 500,000 UNIT/5 ML UDC 500000 UNIT PO ×4 (08:07→22:13)
[2022-03-01] MEDS: Clopidogrel Bisulfate 75 MG Tablet PO (08:07)
[2022-03-01] MEDS: Senna/Docusate Sodium 1 Tablet 2 TABLET PO (08:08)
[2022-03-01] MEDS: Insulin Lispro 100 UNIT/ML INSULN.PEN SC ×3 (08:08→17:50)
[2022-03-01] MEDS: Phenobarbital 32.4 MG Tablet 64.8 MG PO (08:13)
--- NOTE | 2022-03-01 11:10 | EX.PCM.HP.RE ---
[facility] - General General Date of Admission: 02/28/22 Date of Service: 03/01/22 Chief Complaint: Post stroke debility. HPI Narrative SHYAM HERNANDEZ, is a 71 YO M with a past medical history of seizure disorder that started in college colon polyps and actinic keratoses who presented to the ED at [facility] on 02/27/2022 complaining of difficulty speaking and unsteady gait. He stated that he had awoken that morning with the symptoms but was well when he went to bed. A noncontrast CT of the brain showed no acute processes. There was an old thalamic lacunar infarct present. CTA of the head and neck showed no major intracranial arterial occlusion or hemodynamically significant stenosis. There was mild atherosclerotic stenosis of the M1 segment of the left MCA and of the left vertebral artery/subclavian arterial junction. There was also mild plaque present in the right carotid bulb. Consult was obtained with teleneurology who recommended admission to the hospital, MRI and an echocardiogram. MRI showed an acute/subacute left pontine infarct and an old right thalamic lacunar infarct. Echocardiogram showed an ejection fraction of 60% with no regional wall motion abnormalities. There was no atrial enlargement. The bubble contrast study was negative for right to left interatrial shunt. There was no significant valvular heart disease. Significant lab included a hemoglobin A1c of 10.6, triglycerides of 282, LDL of 168 and a low HDL at 35. Phenobarbital level was low at 7.4 but he denied any seizures for several years. He is currently on dual antiplatelet therapy and atorvastatin 40 mg nightly. His only medication for diabetes mellitus is glimepiride 10 mg p.o. daily. SSI scale was added in the hospital. He was seen and evaluated by PT/OT in the hospital and a recommendation was made for acute inpatient rehab. He was transferred to the rehab unit at [facility] on 02/28/2022 for 3 hours of therapy daily to restore independence/function at or near his level prior to the stroke. The only medication listed on the H&P is Phenobarbital. His current PCP is Dr. Varela. Hospital EMR was reviewed. Shyam tells me that the only medication he was taking at home was phenobarbital. There were several family members present in the room when I talk to Shyam and they tell me he snores and stops breathing when he sleeps. He has never had a sleep study. He admits to not regularly following up with his PCP. I reviewed old labs on Shyam and the BS in December 2017 was elevated at 144 at 09 50. In August of this year at 10 in the morning his blood sugar was elevated at 297. [facility] Medical History (Updated 03/01/22 @ 19:[address] Cathleen Bruce DO) Colon polyps Diabetes mellitus, type 2 History of seizures Lacunar infarction Left inguinal hernia Sleep-disordered breathing Home Medications phenobarbital 64.8 mg tablet 64.8 mg PO DAILY SEIZURES 01/16/18 [History Last Taken 02/26/22] aspirin 81 mg chewable tablet 81 mg PO BREAKFAST heart 02/28/22 [History Last Taken Unknown] atorvastatin 40 mg tablet 40 mg PO QHS cholesterol 02/28/22 [History Last Taken Unknown] clopidogrel 75 mg tablet 75 mg PO DAILY Check with primary doctor 02/28/22 [History Last Taken Unknown] enoxaparin 40 mg/0.4 mL subcutaneous syringe (Lovenox) 40 mg subcut DAILY Check with primary doctor 02/28/22 [History Last Taken Unknown] glyburide 5 mg tablet 10 mg PO BREAKFAST Check with primary doctor 02/28/22 [History Last Taken Unknown] insulin lispro 100 unit/mL subcutaneous pen (Humalog KwikPen (U-100) Insulin) See Protocol subcut TIDAC glucose 02/28/22 [History Last Taken Unknown] Allergy/AdvReac Type Severity Reaction Status Date / Time No Known Allergies Allergy Verified 02/27/22 10:15 Family History (Updated 03/01/22 @ 18:[address] Cathleen Bruce DO) Father CAD (coronary artery disease) Mother Parkinsons disease His mother is secondary to complications due to severe Parkinson's disease. Sister Cancer He has 2 sisters and both have had breast cancer. One of the sisters also has coronary artery disease. Son No problems noted. Other CVA (cerebral vascular accident) Family History no significant family his no significant family history (He has 1 son and 1 daughter and they are both in good health.) Surgical History S/P appendectomy s/p laceration repair right arm S/P laparoscopic hernia repair (~12/2017) Social History (Updated 03/01/22 @ 18:[address] 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 Smoking Status: Never smoker alcohol intake: current alcohol intake frequency: a few times a month ROS Constitutional Constitutional: Denies anorexia, change in weight, chills, fatigue, fever(s), night sweats or weakness Eyes Eyes: Reports other Details: His eyes water a lot. Denies that his eyes itch and denies mattering of the eyelids. ; Denies blurry vision, change in vision, eye pain or loss of vision ENT HEENT: Denies abnormal hearing, dysphagia, ear pain, headache(s), hearing loss, nasal congestion, sinus pain or sore throat Cardiovascular Cardiovascular: Denies chest pain, dyspnea on exertion, edema, lightheadedness, orthopnea, palpitations, paroxysmal nocturnal dyspnea or syncope Respiratory/Chest Respiratory/Chest: Denies cough, dyspnea, shortness of breath at rest, shortness of breath with exertion or wheezing Gastrointestinal Gastrointestinal: Denies abdominal pain, constipation, diarrhea, dyspepsia, hematemesis, hematochezia, nausea or vomiting Genitourinary Genitourinary: Reports urinary hesitancy; Denies dysuria, hematuria, nocturia, urinary frequency, urinary incontinence or urinary urgency Musculoskeletal Musculoskeletal: Denies back pain, joint pain, joint swelling or neck pain Neurologic Neurologic: Reports abnormal speech, confusion and focal weakness; Denies disequilibrium, dizziness, headache(s), paresthesias, seizures or tremor(s) Psychiatric Psychiatric: Denies anxiety, depression, homicidal ideation or suicidal ideation Endocrine Endocrinology: Denies change in body appearance, polydipsia or polyuria Hematologic/Lymphatic Hematologic/Lymphatic: Denies easy bleeding, easy bruising or lymphadenopathy Allergic/Immunologic Allergic/Immunologic: Denies rhinitis, eczemia or asthma Vital Signs Vital Signs Vital Signs: 02/28/22 18:26 02/28/22 19:06 02/28/22 21:00 Temperature 98.2 F 98.0 F Temperature Source Oral Oral Pulse Rate 59 L 63 Pulse Strength Normal (2+) Respiratory Rate 18 18 Respiratory Effort Respiratory Depth Respiratory Pattern Blood Pressure 124/76 H 118/69 Blood Pressure Mean 92 85 Blood Pressure Source Monitor Monitor Blood Pressure Position Semi-Fowlers Semi-Fowlers Blood Pressure Location Right Arm Right Arm Pulse Ox 97 95 Oxygen Delivery Method Room Air Room Air 02/28/22 21:30 03/01/22 07:51 03/01/22 07:56 Temperature 97.7 F L Temperature Source Oral Pulse Rate 63 56 L Pulse Strength Respiratory Rate 18 18 Respiratory Effort Normal Non-Labored Respiratory Depth Normal Respiratory Pattern Normal Blood Pressure 141/75 H Blood Pressure Mean 97 Blood Pressure Source Monitor Blood Pressure Position Sitting Blood Pressure Location Right Arm Pulse Ox 95 94 96 Oxygen Delivery Method Room Air Room Air Room Air Weight Weight: 184 lb Body Mass Index (BMI) 26.4 Indicators for Scoring Admitted with or Primary Diagnosis of CVA/Stroke: Yes Hx of CVA/Stroke: Yes Modified [place] Score MRS Score at time of Evaluation: 3-Moderate disability NIHSS NIHSS 1a. Level of Consciousness: Alert; keenly responsive 1b. LOC Questions: Answers BOTH questions correctly. 1c. LOC Commands: Performs both tasks correctly. 2. Best Gaze: Normal 3. Visual: No visual loss 4. Facial Palsy: Minor paralysis (flattened nasolabial fold, asymmetry on smiling) 5a. Left Arm: No drift; arm holds 90 (or 45) degrees for full 10 seconds 5b. Right Arm: No drift; arm holds 90 (or 45) degrees for full 10 seconds 6a. Left Leg: No drift; leg holds 30-degree position for full 5 seconds 6b. Right Leg: No drift; leg holds 30-degree position for full 5 seconds 7. Limb Ataxia: Present in 2 limbs (RUE/RLE ataxia) 8. Sensory: Normal; no sensory loss 9. Best Language: No aphasia; normal 10. Dysarthria: Wwdi-br-ptacukov dysarthria; 11. Extinction and Inattention: No abnormality Total: 4 Stroke Questions Stroke Team Activated: No (He completed the acute stroke and now is in rehab) Physical Exam Const alert, oriented x3 and no apparent distress General Appearance: cooperative HEENT normocephalic HEENT Narrative: Mucous membranes are dry. Eyes PERRL and EOMs intact bilaterally Eyes Narrative: His eyes are watering and the right conjunctiva is mildly injected. Neck No nuchal rigidity, supple, no JVD, No nodes and no carotid bruits General: trachea midline Resp normal respiratory effort, normal air movement and clear to auscultation bilaterally Resp Narrative: Able to speak in complete sentences with no tachypnea. Cardio regular rate, regular rhythm, S1 normal heart sound, S2 normal heart sound, no murmurs, no rub and no gallops GI normal to inspection, nondistended, normoactive bowel sounds, soft to palpation and non-tender GI Narrative: No guarding with palpation Extremity no clubbing, cyanosis or edema and no calf tenderness Skin no jaundice Skin Narrative: He is very tanned. Rashes: no rashes Neuro Neuro Narrative: Right facial droop, ataxic with the right upper extremity and right lower extremity, 5/5 strength throughout, slurred speech with occasional trouble word finding, Coordination / Balance: Negative for [id number] test normal Speech: speech abnormal Motor Exam: strength 5/5 throughout Psych Psych Narrative: He is sometimes slow to respond to questions and stutters. Speech is thick and slurred. He admits to having slower thought process than normal. He has flat affect Appearance: appropriate Mood & Affect: flat affect Thought Content: No suicidality and No homicidality Results Lab / Micro Data Labs: Laboratory Results - last 24 hr 02/28/22 21:18: POC Glucose 275 H 03/01/22 06:37: POC Glucose 205 H Assessment & Plan Assessment/Plan (1) Debility: (2) Acute stroke due to ischemia: PLAN: Left pontine infarct. (3) Diabetes mellitus, type 2: PLAN: BS's have been elevated in 2018 and in August of 2021 - there is no FH of DM.......etiology? (4) Ataxia: (5) Dysarthria: (6) Sleep-disordered breathing: PLAN: Overnight trending pulse ox ordered for tonight. (7) Cognitive dysfunction: (8) Hyperlipidemia: (9) Elevated blood pressure reading without diagnosis of hypertension: PLAN: The BP is only mildy elevated and he just had a ischemic stroke so no intervention at this time. Will continue to monitor. (10) Pseudohyponatremia: PLAN: Plan PLAN PT for gait stability OT for ADL's ST for evaluation Analgesics as needed Bowel protocol Fall precautions Assess for Anxiety/Depression GI prophylaxis-not necessary at this time. He has no history of peptic ulcer disease and he is asymptomatic. DVT prophylaxis with enoxaparin 40 mg subcu daily Follow up with neurologist and PCP following DC from [facility] - Pt/family requesting a new PCP. BMP, MAG, TSH AM Overnight trending pulse ox tonight. Charges/Coding Visit Charges Inpatient E&M: 00609 Init Hosp L3
[2022-03-01 11:45] LABS: Bedside Glucose 237 mg/dL (74-106)
--- NOTE | 2022-03-01 12:22 | NURSING ---
asking pt about work and pt with mild aphasia obs with longer sentences and choosing not to answer except in short words. pt also drooled when was taking food in. pt seems disinterested when insulin teaching teaching started.
--- NOTE | 2022-03-01 12:47 | CASEMGMT ---
Social Work See attached social work assessment for complete details. This social and political studies professor met with patient in room. Patient agreeable to speak with this social and political studies professor. This social and political studies professor completed PHQ-9 assessment with patient due to patient having a stroke diagnosis, patient PHQ-9 score is 00/27. This social and political studies professor provided patient with Stroke Support group brochure and educated patient on support group and encouraged patient to participate after discharge. Patient voiced understanding. Patient plans to return to home alone. Patient identifies son, Joe Sierra as main contact. This social and political studies professor noting that Joe's contact information is not on chart. Patient provided Joe's number as [phone]. Patient to have team meeting on , this social and political studies professor communicated this to patient. Patient request for this social and political studies professor to call Joe to update on team meeting. This social and political studies professor added Joe's contact information to patient demographics in [facility]. Telephone call to Joe, no answer. Voicemail is full. Will continue to follow. Madelin ORNELAS, NIKKO
--- NOTE | 2022-03-01 15:09 | NURSING ---
therapy walking by pts room noted him up on own pulling curtain shut to room. this being second time up unassisted. pt taking pa alarm clip off back and getting up. changed to chair alarm and instructed on tyrese
[2022-03-01 15:11] VITALS: BMI 26.4
--- NOTE | 2022-03-01 16:43 | NURSING ---
speech in to see and pt made distant supervision d/t having part of hiro still in cheek
[2022-03-01 16:56] LABS: Bedside Glucose 237 mg/dL (74-106)
--- NOTE | 2022-03-01 18:27 | NURSING ---
pt son and daughter in law in to visit. again insulin pen teaching gone over and given to pt. daughter in law reports that knows how to do because had cared for her grandfather with diabetes. pt laughing and joking with family. pt taking bigger bites and not paying attention with chewing and keeping food in mouth. tending to drop out of rt side and pt unaware that needs to wipe face.
--- NOTE | 2022-03-01 19:32 | PCM.RU.PYE ---
Admission Information Primary Diagnosis:: Post stroke debility Status Changes from Prescreening?: No changes Identified Actual Problem List:: Cognitve Impr/Memory Loss, Alteration in Sleep, Mobility Impaired, Self Care Deficit, Diabetes, Hyperglycemia and Alteration-Leisure Activ. Potential Problem List:: DVT, Bleeding, Infection, UTI, Aspiration, Falls, Skin Integrity and Depression Risk of Complications DVT: LMWH and VENESSA Hose Bleeding: Monitor Lab Values, Nursing to Teach Precautions for anti-coagulation therapy., Wound, if applicable, to be assessed every shift. and Stroke patients assessed for lethargy or change in status. Infection: Clinical Staff to Monitor for S/S of infection: and S/S of infection include fever, redness, warmth, etc. Urinary Tract Infection: Monitor for frequency, burning, discomfort, or incontinence. and Nursing will obtain urine sample for urinalysis and C&S when ordered. Aspiration: Clinical staff will monitor for coughing, drooling, congestion., Speech will evaluate swallowing and dsyphasia. and Nursing will monitor patient swallowing during meals. Falls: Patient will be evaluated for Fall Precautions and Patient will be placed on Fall Precautions as indicated per protocol. Skin Breakdown: Nursing will assess skin daily using assessment tool. and Nursing will place on Skin Breakdown Precautions as indicated. Pain: Clinical staff will assess patient's pain level per protocol., Medications will be given, if needed, and the pain level reassessed. and Other methods: Massage, distraction, decrease stimulus, etc. used PRN. Plan of Care Patient requires physician specializing in physical medicine and rehab oversight to provide close medical supervision of rehab issues including: Pain Management, Sleep Problems, Bowel and Bladder, Medical and co-morbidity Management, DVT prophylaxis, Rehabilitation Leadership and Coordination of treatment team Patient needs Physical Therapy: For a minimum of 1 hour and At least 5 out of 7 days Patient needs Physical Therapy to improve:: Mobility, Strengthening, Transfers, Stretching, ROM, Endurance, Stairs, Gait and Balance Patient needs Occupational Therapy: For a minimum of 1 hour and At least 5 out of 7 days Patient needs Occupational Therapy to improve ADL's incl.: Eating, Grooming, Bathing, Dressing, Toileting, Toilet transfers, Community Reintegration, Higher functioning activities, Household tasks, Adaptive Equipment, Splinting and Other activities as determined Patient requires speech therapy: For a minimum of 1 hour and At least 5 out of 7 days Patient requires speech therapy for: Swallowing, Cognition, Language Skills and Compensatory Strategies Patient requires 24/7 Rehabilitation Nursing for: Pain Issues, Identifying and preventing risk factors, Monitoring and reporting current medical conditions, Assisting with ambulation, transfer, and all ADL's, Teaching patients about disease process and medications, Family teaching, Providing safe environment, Bowel and Bladder Issues, Skin integrity and Medication Management Patient needs [employer]/ Case Management for: Discharge Planning, Arranging Home Equipment or Services and Family Interventions Patient needs Dietary and Nutrition Services for: Adequate Nutrition, Nutritional Supplements and Nutritional Education Goals Patient will remain: free from falls and or injury at time of discharge. Patient will perform bed mobility at: MOD I level of assist. Patient will complete transfers from bed to chair at: MOD I level of assist. Patient will ambulate: - (On limited community distances at mod I with least restrictive device) Patient will complete upper body dressing at: MOD I level of assist. Patient will complete lower body dressing at: MOD I level of assist. (With adaptive equipment as necessary) Patient will complete toileting at: MOD I level of assist. Patient will perform bathing at: MOD I level of assist. Patient will complete grooming at: MOD I level of assist. Patient will complete home management skills at: MOD I level of assist. Patient will achieve: - (Ascend/descend 10 steps with bilateral handrails ) Patient will have pain level of: of 3 or less Patient's skin will: remain intact Patient will receive: adequate nutrition. Discharge Planning Estimated Length of stay (days): 21 Anticipated D/C Destination: Home Was Preadmission Assessment Accurate?: Yes
[2022-03-01 19:35] VITALS: BP 143/71; PULSE 55; RESP 16; TEMP 36; O2SAT 93
[2022-03-01 21:00] VITALS: PULSE 56; O2SAT 97
[2022-03-01] MEDS: Atorvastatin Calcium 40 MG Tablet PO (22:13)
[2022-03-01 22:41] LABS: Bedside Glucose 217 mg/dL (74-106)
[2022-03-02 06:32] LABS: Anion Gap 5 (5-15); BUN 20 mg/dL (7-18); BUN/Creat Ratio 21.6 RATIO (10-20); Calcium,Total 8.7 mg/dL (8.5-10.1); Chloride 104 mmol/L (98-107); Creatinine, Serum 0.93 mg/dL (0.70-1.30); EST Glomerular Filtration Rate 85 mL/min (>60); Est Glom Filt Rate - Afr Amer 103 mL/min (>60); Estimated Creatinine Clearance 75.22 ml/min; Glucose 211 mg/dL (74-106); Potassium 4.2 mmol/L (3.5-5.1); Sodium Level 137 mmol/L (136-145)
[2022-03-02] MEDS: Enoxaparin 40 MG/0.4 ML Syringe SC (06:40)
[2022-03-02 07:10] LABS: Bedside Glucose 207 mg/dL (74-106)
[2022-03-02 07:55] VITALS: O2SAT 95
[2022-03-02] MEDS: Phenobarbital 32.4 MG Tablet 64.8 MG PO (08:55)
[2022-03-02] MEDS: Insulin Lispro 100 UNIT/ML INSULN.PEN SC ×3 (08:56→17:25)
[2022-03-02] MEDS: Senna/Docusate Sodium 1 Tablet 2 TABLET PO ×2 (08:56→21:35)
[2022-03-02] MEDS: NYSTATIN 500,000 UNIT/5 ML UDC 500000 UNIT PO ×4 (08:56→21:35)
[2022-03-02] MEDS: Clopidogrel Bisulfate 75 MG Tablet PO (08:56)
[2022-03-02] MEDS: Aspirin 81 MG TAB.CHEW PO (08:56)
[2022-03-02 09:00] VITALS: BP 134/75; PULSE 55; RESP 12; TEMP 36.8; O2SAT 96
[2022-03-02 12:16] LABS: Bedside Glucose 246 mg/dL (74-106)
--- NOTE | 2022-03-02 13:30 | CASEMGMT ---
Social Work Team meeting held. Patient present as well as patient son, Joe. Patient participating in physical, occupational and speech therapy and progressing. This social service liaison communicating that Medicare approved 9 days with discharge on or by 03/09/2022. Team collaborating with patient/patient family plan is for discharge date to be set for 03/09/2022. Patient plans to discharge to home alone with family for support. Patient to continue with further care and treatment on the Rehab Unit until discharge. Proposed discharge date: 03/09/2022 PLAN: Discharge to home alone. Social Work to continue to follow. Madelin ORNELAS, EMMAS
--- NOTE | 2022-03-02 14:56 | PCM.PROGNOTE ---
Subjective Subjective Shyam was seen on team rounds today and his son, Luan, was present in the room. Afebrile VSS Maintaining appropriate oxygen saturation on RA Oral intake is adequate Discussed with nursing - Shyam is not ringing his call light when he wants to get up and has been ambulating to the BR without assist. Reviewed the PT/OT/ST notes - Very poor safety awareness and seems to be unaware of his deficits. Medication list reviewed. Shyam states he is willing to take a long acting insulin once a day. BS's remain elevated. He is on Micronase 10 mg daily per the hospitalist and a sliding insulin scale. Shyam denies lightheadedness, vertigo, cephalgia, chest pain, shortness of breath, palpitations, calf tenderness, dysuria. Objective Data Objective Data Vital Signs: Vital Signs Temp Pulse Resp BP Pulse Ox O2 Del Method FiO2 98.3 F 55 L 12 134/75 H 96 Room Air 21 03/02/22 09:00 03/02/22 09:00 03/02/22 09:00 03/02/22 09:00 03/02/22 09:00 03/02/22 09:00 03/01/22 21:00 Oxygen Delivery Method Room Air Weight: 184 lb Body Mass Index (BMI) 26.4 Intake & Output: Intake and Output for Last 24 Hours 02/28/22 03/01/22 03/02/22 23:59 23:59 23:59 Intake Total 1200 / 1200 820 / 820 Output Total 800 / 800 Balance 1200 / 1200 Lab / Micro Data Result Diagrams: 03/02/22 05:40 Labs: Laboratory Results - last 24 hr 03/01/22 16:31: POC Glucose 237 H 03/01/22 22:11: POC Glucose 217 H 03/02/22 05:40: Sodium 137, Potassium 4.2, Chloride 104, Carbon Dioxide 28.0, Anion Gap 5, BUN 20 H, Creatinine 0.93, Estim Creat Clear Calc 75.22, Est GFR (MDRD) Af Amer 103, Est GFR (MDRD) Non-Af 85, BUN/Creatinine Ratio 21.6 H, Glucose 211 H, Calcium 8.7, Magnesium 2.0, TSH 3.00 03/02/22 06:43: POC Glucose 207 H 03/02/22 11:57: POC Glucose 246 H Physical Exam Const alert and no apparent distress General Appearance: well developed Resp normal respiratory effort, normal air movement and clear to auscultation bilaterally Cardio regular rate, regular rhythm, no murmurs, no rub and no gallops Cardio Narrative: No ectopy GI normal to inspection, nondistended, normoactive bowel sounds, soft to palpation and non-tender GI Narrative: No masses, no hepatosplenomegaly and no guarding with palpation. Extremity no calf tenderness General Extremity: Negative for edema Skin General Skin Exam: no breakdown Rashes: no rashes Neuro Neuro Narrative: Speech has improved. Remains ataxic but, he tries to do everything quickly with no regard to proper technique. Does not listen when the therapists tell him to slow down and focus on what he is doing. Continues to have LOB with ambulation. Assessment & Plan Assessment/Plan (1) Debility: PLAN: Continue PT/OT/ST. Safety awareness is going to be a big problem. He seems unaware of his deficits and does not follow instructions well. I suspect he is going to need 24/7 supervision when he is discharged because I do not think he will need safe by himself. (2) Diabetes mellitus, type 2: PLAN: No RF's. Denies any FH, not overweight, very active, never a heavy drinker, no hx of chronic pancreatitis. Will do an US of the pancreas. DC the Micronase. Start Lantus 10 units QHS, glucophage 500 mg with supper and glimepiride 4 mg BID. He will follow up with Dr. Souza following DC. (3) Acute stroke due to ischemia: PLAN: Ischemic. CTA showed no LVO and only mild atherosclerosis. Needs an event monitor at [facility]. He also had a remote lacunar infarct in past. (4) Dysarthria: (5) Ataxia: (6) Cognitive dysfunction: (7) Hyperlipidemia: (8) Conjunctivitis: PLAN: Increased erythema of the lid margins on the left and at the lateral corner of the eye. Increased mucoid DC today and some conjunctival injection laterally. Will send a swab for culture and start gentamicin drops 1 drop right eye every 4 hours. Charges/Coding Visit Charges Inpatient E&M: 75468 Subs Hosp L2
--- NOTE | 2022-03-02 15:11 | US_ITS ---
STUDY: ABDOMINAL ULTRASOUND - RIGHT UPPER QUADRANT REASON FOR VISIT: Male, 71 years old. ABDOMEN PAIN New onset DM/ RF''s. Possible pancreatic mass - TECHNIQUE: Ultrasound evaluation of the right upper quadrant was performed with real-time and static cerna-scale imaging. TECHNICAL QUALITY: Adequate. COMPARISON: None. FINDINGS: Liver: There is increased echogenicity consistent with fatty infiltration. The bile ducts are within normal limits. There is hepatic color flow. The direction of portal flow is hepatopetal. There is no demonstrated mass lesion. Gallbladder: Normal distended gallbladder. The gallbladder wall measures 1.3 mm. There is a negative sonographic Sheth''s sign. There is no pericholecystic fluid. There are no gallstones. Common Bile Duct (C.B.D.): The common bile duct measures ( in mm): 5 Pancreas: Normal size of the head, body of the pancreas. There is normal echogenicity of the pancreas. There is no demonstrated pancreatic mass or cyst. Right Kidney: Normal size of the right kidney. The right kidney measures 11.1 cm. . Normal renal cortex. There is no demonstrated renal mass or cyst. There is no right hydronephrosis. Aorta: It is not visualized. There is too much overlying bowel gas. . US/Abdomen Limited IMPRESSION: Fatty liver. Note: Renal size measurements and size measurements of other organs etc may vary depending on modality and strand forming machine operator dependent variations in measurements. (i.e. Measuring a kidney on an US does not correlate with an exact same measurement on a CT.) Electronically Signed: Petar Nava MD at 19:15 EDT ,
[2022-03-02 15:31] VITALS: BMI 26.4
[2022-03-02 17:11] LABS: Bedside Glucose 214 mg/dL (74-106)
[2022-03-02] MEDS: Gentamicin Sulfate 1 OPTH.BTL 1 DRP RIGHT EYE ×2 (17:26→21:35)
[2022-03-02] MEDS: metFORMIN HCl 500 MG Tablet PO (19:02)
[2022-03-02 19:53] VITALS: BP 136/70; PULSE 55; RESP 16; TEMP 36.6; O2SAT 97
[2022-03-02] MEDS: Atorvastatin Calcium 40 MG Tablet PO (21:35)
[2022-03-02] MEDS: Insulin Glargine-YFGN 100 UNIT/ML Pen 10 UNIT SC (21:35)
[2022-03-02] MEDS: Glimepiride 4 MG Tablet PO (21:35)
[2022-03-02 21:51] LABS: Bedside Glucose 234 mg/dL (74-106)
[2022-03-02 23:43] VITALS: BMI 26.4
[2022-03-03] MEDS: Insulin Lispro 100 UNIT/ML INSULN.PEN SC ×3 (06:16→17:57)
[2022-03-03] MEDS: Enoxaparin 40 MG/0.4 ML Syringe SC (06:18)
[2022-03-03] MEDS: Gentamicin Sulfate 1 OPTH.BTL 1 DRP RIGHT EYE ×5 (06:18→21:58)
[2022-03-03 06:40] LABS: Bedside Glucose 231 mg/dL (74-106)
[2022-03-03 07:36] VITALS: BP 136/81; PULSE 71; RESP 16; TEMP 36.9; O2SAT 94
[2022-03-03 08:34] VITALS: O2SAT 98
[2022-03-03] MEDS: Phenobarbital 32.4 MG Tablet 64.8 MG PO (08:44)
[2022-03-03] MEDS: NYSTATIN 500,000 UNIT/5 ML UDC 500000 UNIT PO ×4 (08:44→21:56)
[2022-03-03] MEDS: Glimepiride 4 MG Tablet PO ×2 (08:45→21:57)
[2022-03-03] MEDS: Clopidogrel Bisulfate 75 MG Tablet PO (08:45)
[2022-03-03] MEDS: Aspirin 81 MG TAB.CHEW PO (08:45)
[2022-03-03 11:40] LABS: Bedside Glucose 251 mg/dL (74-106)
[2022-03-03 13:50] VITALS: BMI 26.4
[2022-03-03 17:40] LABS: Bedside Glucose 233 mg/dL (74-106)
[2022-03-03] MEDS: metFORMIN HCl 500 MG Tablet PO (17:56)
[2022-03-03 20:25] VITALS: BP 128/65; PULSE 61; RESP 18; TEMP 36.9; O2SAT 98
[2022-03-03 21:31] LABS: Bedside Glucose 141 mg/dL (74-106)
[2022-03-03] MEDS: Atorvastatin Calcium 40 MG Tablet PO (21:57)
[2022-03-03] MEDS: Senna/Docusate Sodium 1 Tablet 2 TABLET PO (21:57)
[2022-03-03] MEDS: Insulin Glargine-YFGN 100 UNIT/ML Pen 10 UNIT SC (21:58)
[2022-03-03 23:20] VITALS: BMI 26.4
[2022-03-04] MEDS: Gentamicin Sulfate 1 OPTH.BTL 1 DRP RIGHT EYE ×5 (06:11→21:46)
[2022-03-04] MEDS: Enoxaparin 40 MG/0.4 ML Syringe SC (06:12)
[2022-03-04 06:35] LABS: Bedside Glucose 129 mg/dL (74-106)
[2022-03-04 07:48] VITALS: BP 146/73; PULSE 57; RESP 16; TEMP 36.9; O2SAT 92
[2022-03-04] MEDS: Clopidogrel Bisulfate 75 MG Tablet PO (07:52)
[2022-03-04] MEDS: Aspirin 81 MG TAB.CHEW PO (07:52)
[2022-03-04] MEDS: Glimepiride 4 MG Tablet PO ×2 (07:52→21:46)
[2022-03-04] MEDS: NYSTATIN 500,000 UNIT/5 ML UDC 500000 UNIT PO ×4 (07:53→21:52)
[2022-03-04] MEDS: Phenobarbital 32.4 MG Tablet 64.8 MG PO (07:53)
[2022-03-04] MEDS: Senna/Docusate Sodium 1 Tablet 2 TABLET PO ×2 (07:53→21:46)
--- NOTE | 2022-03-04 10:02 | NURSING ---
therapy was getting pt up on stairs and when told to use hand rails stated, im trying to not have to use them and then tripped up the stairs grazing rt knee. skin intact. little to no weight placed on it per therapist report. denies any injury.
[2022-03-04 11:30] LABS: Bedside Glucose 208 mg/dL (74-106)
[2022-03-04] MEDS: Insulin Lispro 100 UNIT/ML INSULN.PEN SC ×2 (12:01→17:31)
[2022-03-04 15:18] VITALS: BMI 26.4
[2022-03-04] MEDS: metFORMIN HCl 500 MG Tablet PO (17:30)
[2022-03-04 21:30] VITALS: BP 128/72; PULSE 55; RESP 18; TEMP 36.5; O2SAT 94; BMI 26.4
[2022-03-04] MEDS: Atorvastatin Calcium 40 MG Tablet PO (21:46)
[2022-03-04] MEDS: Insulin Glargine-YFGN 100 UNIT/ML Pen 10 UNIT SC (21:52)
[2022-03-05] MEDS: Enoxaparin 40 MG/0.4 ML Syringe SC (06:08)
[2022-03-05] MEDS: Gentamicin Sulfate 1 OPTH.BTL 1 DRP RIGHT EYE ×5 (06:08→20:20)
[2022-03-05 07:50] VITALS: BP 135/76; PULSE 55; RESP 16; TEMP 36.7; O2SAT 96
[2022-03-05] MEDS: Phenobarbital 32.4 MG Tablet 64.8 MG PO (08:15)
[2022-03-05] MEDS: Clopidogrel Bisulfate 75 MG Tablet PO (08:15)
[2022-03-05] MEDS: Aspirin 81 MG TAB.CHEW PO (08:15)
[2022-03-05] MEDS: Glimepiride 4 MG Tablet PO ×2 (08:15→20:19)
[2022-03-05] MEDS: NYSTATIN 500,000 UNIT/5 ML UDC 500000 UNIT PO ×4 (08:15→20:19)
--- NOTE | 2022-03-05 08:56 | NURSING ---
pt not in bed or chair on round. was in bathroom shaving. pt refusing to call for assistance. up and down on own. told that had to wait for therapy to release as ad radames status. pt telling nurse that 'uriah said i could pt still impulsive and moves too quickly and denies or ignores any deficits.
[2022-03-05] MEDS: Insulin Lispro 100 UNIT/ML INSULN.PEN SC (11:44)
[2022-03-05 12:03] LABS: Bedside Glucose 212 mg/dL (74-106)
[2022-03-05 14:51] VITALS: BMI 26.4
[2022-03-05 16:55] LABS: Bedside Glucose 120 mg/dL (74-106)
[2022-03-05] MEDS: metFORMIN HCl 500 MG Tablet PO (17:12)
[2022-03-05 19:25] VITALS: BP 135/72; PULSE 54; RESP 16; TEMP 36.4; O2SAT 97
[2022-03-05 20:15] VITALS: PULSE 54; RESP 16; O2SAT 97; BMI 26.4
[2022-03-05] MEDS: Senna/Docusate Sodium 1 Tablet 2 TABLET PO (20:20)
[2022-03-05] MEDS: Atorvastatin Calcium 40 MG Tablet PO (20:20)
[2022-03-05] MEDS: Insulin Glargine-YFGN 100 UNIT/ML Pen 10 UNIT SC (20:24)
[2022-03-05 20:51] LABS: Bedside Glucose 196 mg/dL (74-106)
--- NOTE | 2022-03-06 00:54 | NURSING ---
staff completed clinical findings at 2014, pt stated there is not much to do around here staff offered pt to ambulate around the unit and was agreeable. [employer]point Trainer with pt as her ambulated 3x's around the unit. after completing pt was instructed to call for assistance when getting ready for bed. pa alarm place on pt. staff noted when pt walking around the unit pt pace was fast and was noted to misstep and become off balance 2200 engine dynamometer tester asked if the worker had put pt to bed, i had not, pt had removed pa and put himself to bed without calling for assistance. pt sleeping at this time. will place a pressure alarm in chair and bed for safety
--- NOTE | 2022-03-06 02:36 | NURSING ---
Reviewed and agree with ELECTRICAL MAINTENANCE ENGINEER documentation and assessment charting.
[2022-03-06] MEDS: Enoxaparin 40 MG/0.4 ML Syringe SC (06:49)
[2022-03-06] MEDS: Gentamicin Sulfate 1 OPTH.BTL 1 DRP RIGHT EYE ×5 (06:49→20:46)
[2022-03-06 07:15] LABS: Bedside Glucose 103 mg/dL (74-106)
[2022-03-06] MEDS: Glimepiride 4 MG Tablet PO ×2 (08:04→20:48)
[2022-03-06] MEDS: Aspirin 81 MG TAB.CHEW PO (08:04)
[2022-03-06] MEDS: Clopidogrel Bisulfate 75 MG Tablet PO (08:04)
[2022-03-06] MEDS: Phenobarbital 32.4 MG Tablet 64.8 MG PO (08:05)
[2022-03-06] MEDS: NYSTATIN 500,000 UNIT/5 ML UDC 500000 UNIT PO ×4 (08:05→20:47)
[2022-03-06 10:00] VITALS: BP 125/70; PULSE 51; RESP 16; TEMP 36.3; O2SAT 96
--- NOTE | 2022-03-06 10:25 | PCM.PROGNOTE ---
Subjective Subjective Afebrile VSS Maintaining appropriate oxygen saturation on RA Oral intake is adequate Discussed with nursing - Has been non-complaint with nursing. Ambulating in his room and not calling for assistance. No falls have happened. Reviewed the PT/OT/ST notes - He has poor safety awareness and does not follow instructions. Family asking when he can start using a chain saw again and walk in the [place]. I do not feel he is going to be safe at home by himself without supervision. Will need to discuss this with Pt and family. He does not seem interested in learning what he will need to do to prevent further strokes going forward. He is used to doing whatever he wants and taking care of his health has not been a priority. Medication list reviewed. Blood sugar record was reviewed. Blood sugar is high at lunch daily. Fasting sugar today is 103. Shyam has no complaints today. Continues to ask me when he can go home and when he can start walking in the [place] and using a chainsaw. Not only is he ataxic but, he has decreased fine motor coordination in the R hand. Objective Data Objective Data Vital Signs: Vital Signs Temp Pulse Resp BP Pulse Ox O2 Del Method FiO2 97.6 F L 54 L 16 135/72 H 97 Room Air 21 03/05/22 19:25 03/05/22 20:15 03/05/22 20:15 03/05/22 19:25 03/05/22 20:15 03/05/22 20:15 03/01/22 21:00 Oxygen Delivery Method Room Air Weight: 177 lb 0.499 oz Body Mass Index (BMI) 26.4 Intake & Output: Intake and Output for Last 24 Hours 03/04/22 03/05/22 03/06/22 23:59 23:59 23:59 Intake Total 600 / 600 600 / 600 Output Total 300 / 300 Balance 600 / 600 -300 / -300 600 / 600 Lab / Micro Data Result Diagrams: 03/02/22 05:40 Labs: Laboratory Results - last 24 hr 03/05/22 11:44: POC Glucose 212 H 03/05/22 16:35: POC Glucose 120 H 03/05/22 20:23: POC Glucose 196 H 03/06/22 06:54: POC Glucose 103 Micro: Microbiology 03/02/22 14:29 Discharge - Eye Gram Stain - Final 03/02/22 14:29 Discharge - Eye Eye Culture - Final Staphylococcus haemolyticus Staphylococcus epidermidis 03/02/22 14:29 Discharge - Eye Anaerobic Culture - Preliminary No growth in 48 hours. Physical Exam Const alert and no apparent distress Constitutional Narrative: Not always cooperative. He does what therapy asks of him but, he is doing things too quickly and he is losing his balance. He almost fell going up the stairs because he would not use the HR. Resp normal respiratory effort and clear to auscultation bilaterally Cardio regular rate, regular rhythm, no murmurs and no gallops GI normal to inspection, nondistended, normoactive bowel sounds, soft to palpation and non-tender Extremity no calf tenderness General Extremity: Negative for edema Skin General Skin Exam: no breakdown Rashes: no rashes Psych Psych Narrative: thought process is slow and he has no regard for safety awarenss. Activity / Motor Behavior: restless Assessment & Plan Assessment/Plan (1) Debility: PLAN: Continue therapy. He is to be discharged home on the but, I do not feel he is safe to go home by himself. He needs 24/7 supervision for at least the first 2 weeks. (2) Acute stroke due to ischemia: PLAN: RF's include age, HLD, Uncontrolled DM II, the fact that he had a prior stroke........he is at risk for more strokes and/or cardiac events going forward if he does not get the DM and the HLD under control. Has not been compliant with physician F/U in the past. He does not seem to be taking this stroke seriously and he is overestimating what he can do. (3) Ataxia: (4) Cognitive dysfunction: (5) Conjunctivitis: PLAN: due to staph hemolyticus and staph epidermidis-both are sensitive to gentamicin (6) Diabetes mellitus, type 2: PLAN: Increase metformin to 500 mg twice daily. Nursing is trying to teach him how to use and insulin pen to inject himself but, they tell me that he is disinterested. Not sure he will be compliant post DC. May need to teach a family member how to administer the insulin. Charges/Coding Visit Charges Inpatient E&M: 27005 Subs Hosp L2
[2022-03-06 11:45] LABS: Bedside Glucose 170 mg/dL (74-106)
[2022-03-06 13:08] VITALS: BMI 26.4
[2022-03-06 16:45] LABS: Bedside Glucose 188 mg/dL (74-106)
[2022-03-06] MEDS: metFORMIN HCl 500 MG Tablet PO (17:32)
[2022-03-06 19:23] VITALS: BP 142/73; PULSE 84; RESP 14; TEMP 36.8; O2SAT 98
[2022-03-06 20:30] VITALS: PULSE 84; RESP 14; O2SAT 99; BMI 26.4
[2022-03-06] MEDS: Atorvastatin Calcium 40 MG Tablet PO (20:47)
[2022-03-06] MEDS: Senna/Docusate Sodium 1 Tablet 2 TABLET PO (20:47)
[2022-03-06] MEDS: Insulin Glargine-YFGN 100 UNIT/ML Pen 10 UNIT SC (20:53)
[2022-03-06 21:20] LABS: Bedside Glucose 229 mg/dL (74-106)
--- NOTE | 2022-03-07 02:17 | NURSING ---
Reviewed and agree with MANUFACTURING PLANNER documentation and assessment charting.
--- NOTE | 2022-03-07 03:27 | NURSING ---
2030 clinical findings completed while pt is in the the recliner. staff attempted to educate pt on insulin teaching with pt not paying attention, then stated i know. pt instructed to use his call light before getting into his bed, following mod I instructions set forth by pt. pt picked up the mod I instruction paper and stated why do I have to call you I have this paper? tru explained safety reasons to pt and pt just smiled and gave a little laugh. at 2200 pt was noted to be in bed and did not use call light to ask for staff assistance
[2022-03-07] MEDS: Gentamicin Sulfate 1 OPTH.BTL 1 DRP RIGHT EYE ×5 (06:18→23:12)
[2022-03-07] MEDS: Enoxaparin 40 MG/0.4 ML Syringe SC (06:18)
[2022-03-07 06:45] LABS: Bedside Glucose 127 mg/dL (74-106)
[2022-03-07 07:27] VITALS: BP 141/71; PULSE 64; RESP 16; TEMP 37.2; O2SAT 100
[2022-03-07] MEDS: Aspirin 81 MG TAB.CHEW PO (09:03)
[2022-03-07] MEDS: Glimepiride 4 MG Tablet PO ×2 (09:03→23:12)
[2022-03-07] MEDS: metFORMIN HCl 500 MG Tablet PO ×2 (09:03→17:50)
[2022-03-07] MEDS: NYSTATIN 500,000 UNIT/5 ML UDC 500000 UNIT PO ×4 (09:08→23:12)
[2022-03-07] MEDS: Phenobarbital 32.4 MG Tablet 64.8 MG PO (09:08)
[2022-03-07] MEDS: Clopidogrel Bisulfate 75 MG Tablet PO (09:08)
[2022-03-07 12:36] LABS: Bedside Glucose 148 mg/dL (74-106)
--- NOTE | 2022-03-07 13:01 | CASEMGMT ---
Addendum entered by Lynne Stubbs 03/07/22 15:00: Received return phone call from dtr explaining the goal is for pt to DC to son's house and receive outpatient therapy at [facility]. Family is meeting with pt and ST tomorrow to confirm. Family to transport home. Plan: DC 03/09 to son's home, [facility] PT/OT/ST, no DME CECI Lee Original Note: Social Work SW contacted dtr to follow up on DC plans for 03/09. IDT expressed concerns with pt returning home alone and recommending initial 24/ care or to DC to a family member's home. Expressed issues with safety and reasoning as pt is having difficulty understanding those concerns. Dtr expressed understanding and agreed to recommendations. SW offered options for nonskilled HHC, skilled HHC at a family member's house or SNF. Dtr stated she will knows pt will not agree to a SNF, but dtr and son have both offered for pt to DC to their homes. Dtr to discuss with family and notify SW of decision by end of day to make DC arrangements. SW appreciative. Will continue to follow. CECI Lee
[2022-03-07 15:16] VITALS: BMI 26.4
--- NOTE | 2022-03-07 16:07 | PCM.PN.BLA ---
Progress Note Afebrile VSS - The systolic is still often above goal. Diastolic is good. Goal BP is less than 130/80. Diastolic has been within goal. Maintaining appropriate oxygen saturation on RA Oral intake is adequate Discussed with nursing - He was made WOLF in his room before 7 PM daily but, he continues to be non-compliant and get up without calling for assistance after 7 PM. I watched him ambulate today and he is walking very fast at SBA and I saw him lose his balance and stumble a few times while U was watching. Reviewed the PT/OT/ST notes Medication list reviewed. Blood sugar record was reviewed. The fasting blood sugar was 127 this a.m. and the blood sugar at noon was 148. Sliding scale insulin was discontinued yesterday. Glucophage was increased to 500 mg twice daily yesterday. Will continue to monitor QID BS's until his DC on . Family is supposed to come in tomorrow after at 1:30 to work with the therapists to see how Shyam has progressed and to assess how much help he will need at home. They have been told we feel he will need 24/7 supervision at home to keep him safe. Physical Exam Const alert, oriented x3 and no apparent distress General Appearance: cooperative Eyes PERRL, EOMs intact bilaterally and normal visual jefferson by confrontation Resp normal respiratory effort, normal air movement, no retractions, no use of accessory muscles and clear to auscultation bilaterally Cardio regular rate, regular rhythm, S1 normal heart sound, S2 normal heart sound, no murmurs, no rub and no gallops GI normal to inspection, nondistended, normoactive bowel sounds, soft to palpation and non-tender Extremity no calf tenderness and no pedal edema Assessment & Plan Assessment/Plan (1) Debility: PLAN: Continue therapy (2) Acute stroke due to ischemia: PLAN: Risk factors include age, hyperlipidemia, diabetes mellitus type 2 uncontrolled. Continue dual antiplatelet drugs for 3 weeks from the date of the stroke and then discontinue one of them. (3) Ataxia: (4) Cognitive dysfunction: (5) Hyperlipidemia: PLAN: Continue atorvastatin (6) Elevated blood pressure reading without diagnosis of hypertension: PLAN: Systolic is mildly elevated on occasion and the goal for hypertension management in patients with history of stroke is to keep the blood pressure less than 130/80. (7) Diabetes mellitus, type 2: PLAN: He has been resistant with learning how to give himself an insulin shot.......Will continue to try but, will also teach another family member how to administer insulin. He will follow up with Dr. Garret Souza post discharge. PLAN: Plan 1. ID home on 03/09 with 19/02 supervision for the first 2 weeks. OP therapy at [facility]. Visit Charges Inpatient E&M: 96861 Subs Hosp L2
[2022-03-07 19:42] VITALS: BP 143/72; PULSE 64; RESP 18; TEMP 36.8; O2SAT 98
[2022-03-07] MEDS: Atorvastatin Calcium 40 MG Tablet PO (23:12)
[2022-03-07] MEDS: Senna/Docusate Sodium 1 Tablet 2 TABLET PO (23:12)
[2022-03-07] MEDS: Insulin Glargine-YFGN 100 UNIT/ML Pen 10 UNIT SC (23:14)
[2022-03-07 23:40] LABS: Bedside Glucose 135 mg/dL (74-106)
[2022-03-08 01:15] VITALS: BMI 26.4
[2022-03-08] MEDS: Gentamicin Sulfate 1 OPTH.BTL 1 DRP RIGHT EYE ×5 (06:17→21:19)
[2022-03-08] MEDS: Enoxaparin 40 MG/0.4 ML Syringe SC (06:17)
[2022-03-08 06:50] LABS: Bedside Glucose 111 mg/dL (74-106)
[2022-03-08] MEDS: Aspirin 81 MG TAB.CHEW PO (07:41)
[2022-03-08] MEDS: metFORMIN HCl 500 MG Tablet PO ×2 (07:41→17:04)
[2022-03-08 07:45] VITALS: BP 136/69; PULSE 74; RESP 18; TEMP 36.7; O2SAT 97
[2022-03-08] MEDS: Glimepiride 4 MG Tablet PO ×2 (09:12→21:20)
[2022-03-08] MEDS: NYSTATIN 500,000 UNIT/5 ML UDC 500000 UNIT PO ×3 (09:12→17:03)
[2022-03-08] MEDS: Clopidogrel Bisulfate 75 MG Tablet PO (09:13)
[2022-03-08] MEDS: Senna/Docusate Sodium 1 Tablet 2 TABLET PO ×2 (09:13→21:20)
[2022-03-08] MEDS: Phenobarbital 32.4 MG Tablet 64.8 MG PO (09:16)
[2022-03-08 13:15] VITALS: BMI 26.4
--- NOTE | 2022-03-08 14:08 | PCM.PROGNOTE ---
Subjective Subjective Afebrile VSS -systolic blood pressure is usually greater than 130 and the goal for blood pressure control in a patient with a history of stroke is to keep the blood pressure less than 130/80. I suspect he is somewhat anxious and here and so an antihypertensive has not been added. He will follow-up with his PCP who will monitor his blood pressures as an outpatient. If the systolic blood pressure remains greater than 130 would consider starting an antihypertensive. The BP is only at goal at bedtime. Maintaining appropriate oxygen saturation on RA Oral intake is good Discussed with nursing - no problems that need addressed Reviewed the PT/OT/ST notes - I spoke with PT and ST and we had a family meeting with Shyam and his immediate family. Shyam did much better with therapy today. He has slowed down and he has better technique. He was able to do a flight of stair using 1 HR with no loss of balance. His time with the TUG test was slower this week BUT, he had no LOB and was concentrating on his technique. Medication list reviewed. Shyam denies cephalgia, vision loss, choking, chest pain, shortness of breath, palpitations, lightheadedness, epigastric pain, dysuria and calf pain. Has not given his own insulin yet but, today he is telling me he is willing to learn......he has been resistant to teaching with the night nurses. Objective Data Objective Data Vital Signs: Vital Signs Temp Pulse Resp BP Pulse Ox O2 Del Method FiO2 98.1 F 74 18 136/69 H 97 Room Air 21 03/08/22 07:45 03/08/22 07:45 03/08/22 07:45 03/08/22 07:45 03/08/22 07:45 03/08/22 07:45 03/01/22 21:00 Oxygen Delivery Method Room Air Weight: 177 lb 0.499 oz Body Mass Index (BMI) 26.4 Intake & Output: Intake and Output for Last 24 Hours 03/06/22 03/07/22 03/08/22 23:59 23:59 23:59 Intake Total 900 / 900 720 / 720 Balance 900 / 900 720 / 720 Lab / Micro Data Result Diagrams: 03/02/22 05:40 Labs: Laboratory Results - last 24 hr 03/07/22 23:11: POC Glucose 135 H 03/08/22 06:25: POC Glucose 111 H Micro: Microbiology 03/02/22 14:29 Discharge - Eye Gram Stain - Final 03/02/22 14:29 Discharge - Eye Eye Culture - Final Staphylococcus haemolyticus Staphylococcus epidermidis 03/02/22 14:29 Discharge - Eye Anaerobic Culture - Preliminary Checking for anaerobes, further studies to follow. Physical Exam Const alert, oriented x3 and no apparent distress Constitutional Narrative: Making eye contact with me. Normal affect. He is laughing and interacting well with his family. General Appearance: cooperative HEENT normocephalic, head/scalp atraumatic and moist oral mucous membranes HEENT Narrative: Conjunctivitis has resolved in the right eye. There is no scleral icterus and no conjunctival injection. Eyes PERRL and EOMs intact bilaterally Eyes Narrative: No visual field cuts Neck supple Resp normal respiratory effort, normal air movement and clear to auscultation bilaterally Cardio regular rate, regular rhythm, S1 normal heart sound, S2 normal heart sound, no murmurs, no rub and no gallops GI normal to inspection, nondistended, normoactive bowel sounds, soft to palpation and non-tender Extremity no calf tenderness General Extremity: Negative for cyanosis or edema Skin General Skin Exam: no breakdown Rashes: no rashes Neuro CN's II-XII intact bilaterally Neuro Narrative: Strength is 5/5 throughout. No ataxia today. still having issues with fine motor coordination of the R hand. He did well with functional tasks with ST today scoring 90-100% accuracy BUT, executive functioning is still significantly impaired. When he slows down he is able to ambulate with no loss of balance without an assistive device. Coordination / Balance: [id number] test normal and [id number] test normal Speech: speech normal Motor Exam: strength 5/5 throughout Assessment & Plan Assessment/Plan (1) Debility: (2) Acute stroke due to ischemia: PLAN: Continue dual antiplatelet agents until 03/22/2022 and then he can continue with a single antiplatelet agent. Decision which he continues will be deferred to neurology or his PCP. Continue atorvastatin 40 mg p.o. nightly. Will need a liver panel, lipid panel and a CK in 4 to 6 weeks. (3) Ataxia: PLAN: Ataxia has resolved. (4) Cognitive dysfunction: PLAN: Executive functioning is still significantly impaired and this was shared with Shyam and his family. (5) Elevated blood pressure reading without diagnosis of hypertension: PLAN: Continue to monitor as an OP and if the systolic stays consistently > 130 would start an antihypertensive. (6) Diabetes mellitus, type 2: PLAN: Blood sugars are now well controlled with the increase in Glucophage to twice daily. He will follow with Dr. Garret Souza as an outpatient and is interested in a continuous glucose monitor. We will have nursing instruct him once again at insulin administration today and also instruct one of his family members in the event that Shyam is unable to do it. PLAN: Plan DC home tomorrow with 24/ supervision. No dangerous activities such as using a chain saw, using a shear wand, driving a tractor, swimming by himself, contact sports. Family would like to see the sap trainer because they will be doing meal prep at [facility] and they need to know what he is to eat. Follow up with Dr. Na Bowen and Dr. Garret Souza post [facility]. Will also follow up with neurology. Will send RX's to [facility] in [place]. All questions were answered to the family's satisfaction. Charges/Coding Visit Charges Inpatient E&M: 28575 Subs Hosp L2
--- NOTE | 2022-03-08 14:28 | DCINST_ITS ---
Discharge Instructions Diet Discharge Diet: - (2,000 calorie diet with low fat and low salt. ) Activity Discharge Activity: May Not Drive, May Shower and - (use a wlaker or a cane when you are outside walking on uneven ground to help with balance and prevent falls. ) Weight Bearing Status: Full weight bearing Dressing / Incision Call your doctor if you observe: Fever of 101 or Higher, Inability to urinate, Shortness of breath, Dizziness, Fainting spells, Swelling in the ankles, Chest pain, Increased palpitations (irregular heartbeat) and Calf discomfort Follow Up Care Please Follow Up With: Doretha Koch MD When: Also follow up with Dr. Garret Souza on 03/09/12 at 10 AM. Test Results: Test results from this visit will be discussed in further detail at your follow- up appointment, if applicable. Pending Tests Upon Discharge: none Discharge Plan Admission Admit Date/Time: 02/28/22 18:15 Primary Reason for Your Visit: Post stroke debility. Attending Provider: Cathleen Bruce Primary Care Provider: Horacio Varela Instructions Patient Instructions: A1C, 5 Steps for Eating Healthier, Discharge Instructions for Stroke, ED Hypoglycemia Oral Diabetic ..., Booklet - Understanding Stroke Additional Instructions / Restrictions: 1. Any time you take medication you are at risk of having a low blood sugar. This is called Hypoglycemia. Some of the symptoms are lightheadedness, nausea, blurry vision, nausea and sweating. If it gets low enough you could have a seizure. You should not skip meals and you should always carry something to eat or drink to take if you have symptoms of hypoglycemia. You can get glucose tabs at any pharmacy and they are easy to carry in your pocket if you are out and about. 2. STROKE WARNING SIGNS: IF you have ANY of these signs call 911 and get to a ER. Time is brain and since you have already had 2 strokes you are at increased risk for another. In order to prevent another stroke going forward there are certain goals you have to keep in mind. BP < 130/80. LDL ( bad cholesterol ) < 70, HGBA1C < 7.0 You do not smoke so I do not have to tell you to stop smoking so I will tell you not to start smoking. Diabetes and High cholesterol are big risk factors for both strokes and cardiac events. If you want to stay independent and functional you will take better care of yourself and keep the goals for BP, LDL and HGBA1C that have been set for you. 1. Sudden numbness or weakness of the face, arm or leg especially if on one side of the body only 2. Sudden confusion, trouble speaking or understanding speech 3. Sudden trouble seeing in 1 eye or both eyes 4. Sudden trouble walking, dizziness, loss of balance or incoordination 5. Sudden severe headache with no known cause 3. We need to make sure that you are not having a problem with the rhythm of the heart called Atrial fibrillation. I am ordering a 30 day event monitor for you and you will have to follow up with a ground instructor basic to go over the results with you. If you are having AFIB then you will need to start an anticoagulant. It may be a good idea to have a stress test at some point in the future to make sure you do not have heart disease. When there is disease in the arteries of the brain or neck there is often disease in the arteries of the heart. You can discuss this with the ground instructor basic. 4. Keep your appts with Dr. Koch......health maintenance is IMPORTANT if you want to stay healthy. 5. You will need some lab drawn in 4-6 weeks to check the cholesterol and a liver panel. Dr. Koch will give you a lab slip to have the blood drawn. 6. Dr. Souza will be able to get you set up with a continuous glucose monitor. 7. If you have any questions after you leave rehab and before you see Dr. Koch please do not hesitate to call me at: OFFICE: [phone] CELL: [phone] I hope you take this stroke seriously Shyam. Some people never recover from a stroke and they end up in a retirement in a diaper with a feeding tube and sometimes lose the ability to speak or understand what people are saying. You were very leonei this time because you are recovering and you will be able to be independent again. Discharge Orders/Prescriptions Prescriptions: New acetaminophen [Tylenol] 325 mg Tablet 650 mg PO Q6H PRN PRN (Reason: PAIN) Qty: 0 0RF glimepiride 4 mg Tablet 4 mg PO BID Qty: 60 0RF insulin degludec 100 unit/mL (3 mL) insulin pen 10 unit subcut QHS Qty: 6 0RF metformin 500 mg Tablet 500 mg PO BIDCM Qty: 60 0RF Continued phenobarbital 64.8 MG tablet 64.8 mg PO DAILY atorvastatin 40 mg tablet 40 mg PO QHS Qty: 30 0RF Rx Instructions: Take this medication at bedtime....it is more effective when taken at bedtime. clopidogrel 75 mg tablet 75 mg PO DAILY Qty: 30 0RF aspirin 81 mg tablet,chewable 81 mg PO BREAKFAST Qty: 1 0RF Rx Instructions: Stop on 03/22/2022. Discontinued enoxaparin [Lovenox] 40 mg/0.4 mL Syringe 40 mg SUBCUT DAILY glyburide 5 mg tablet 10 mg PO BREAKFAST insulin lispro [Humalog KwikPen Insulin] 100 unit/mL insulin pen See Protocol subcut TIDAC Protocol: 3. Sliding Scale Insulin Med Dosing Condition: 150-189 mg/dl = 1 unit Condition: 190-229 mg/dl = 2 units Condition: 230-269 mg/dl = 3 units Condition: 270-309 mg/dl = 4 units Condition: 310-349 mg/dl = 5 units Condition: 350-399 mg/dl = 6 units Condition: 400-449 mg/dl = 7 units Condition: Greater than 449 call physician Protocol Text: - Use for Total Daily Dose of Insulin 37-55 units - Obsese, infected, or steroid patients MEDIUM DOSING ALGORITHIM Referrals / Follow Up: Jean Rowell [Other] - 05/26/22 9:20 am (Neurology ) Horacio Shields MD [STAFF PHYSICIAN] - 03/13/22 10:15 am Horacio Varela MD [Primary Care Provider] - 03/15/22 11:00 am Garret Souza MD [Med Staff - Courtesy Staff] - 03/09/22 10:00 am (please arrive 20-30 minutes early) Disposition Disposition (needs filled in before D/C Order can be placed): Home, Self Care
--- NOTE | 2022-03-08 15:48 | EX.DISCHREH ---
Providers Date of Admission: 02/28/22 Date of Discharge: 03/09/22 Primary Care Physician: Dr. Na Koch Reason For Visit: POST STROKE DEBILITY Diagnosis Discharge Diagnosis (1) Debility: Status: Acute Code(s): R53.81 - Other malaise (2) Acute stroke due to ischemia: Status: Acute Code(s): I63.9 - Cerebral infarction, unspecified Plan: Continue dual antiplatelet agents until 03/22/2022 and then he can continue with a single antiplatelet agent. Will continue with ASA 81 mg daily after that. Continue atorvastatin 40 mg p.o. nightly. Will need a liver panel, lipid panel and a CK in 4 to 6 weeks. (3) Ataxia: Status: Acute Code(s): R27.0 - Ataxia, unspecified Plan: Ataxia has resolved. (4) Cognitive dysfunction: Status: Acute Code(s): F09 - Unspecified mental disorder due to known physiological condition Plan: Executive functioning is still significantly impaired and this was shared with Adenike and his family at a family meeting prior to DC. (5) Elevated blood pressure reading without diagnosis of hypertension: Status: Acute Code(s): R03.0 - Elevated blood-pressure reading, without diagnosis of hypertension Plan: Continue to monitor as an OP and if the systolic stays consistently > 130 would start an antihypertensive. Encouraged him to purchase a BP cuff and take his BP at different times of the day and keep a record to go over with Dr. Koch at his first office visit. BP on the day of DC is 152/74. (6) Diabetes mellitus, type 2: Status: Acute Code(s): E11.9 - Type 2 diabetes mellitus without complications Plan: Blood sugars are now well controlled with the increase in Glucophage to twice daily. Will continue Amaryl 4 mg BID, Lantus 10 units at HS and Glucophage 500 mg BID at DC. May benefit He will follow with Dr. Garret Souza as an outpatient and is interested in a continuous glucose monitor. Adenike and a family member were instructed in proper insulin injection technique prior to DC. (7) Hyperlipidemia: Status: Acute Code(s): E78.5 - Hyperlipidemia, unspecified Plan: Continue on 40 mg p.o. nightly. LFTs and lipid profile in 4 to 6 weeks. Goal is LDL < 70. Plan DC home to his son's home with 7 supervision for at least the first 2 weeks post DC. No dangerous activities such as using a chain saw, using a shear wand, driving a tractor, swimming by himself, contact sports. Family and Adenike were educated by the stab setter and driller on a 2,000 calorie, low-salt, low-fat diet prior to discharge. Follow up with Dr. Na Koch and Dr. Garret Souza post DC. Will also follow up with Dr. Jean Rowell for neurology. RX's faxed to [facility] in [place]. No DME needed. Ongoing OP therapy at [facility]. Medications at Discharge Home Medications phenobarbital 64.8 mg tablet 64.8 mg PO DAILY SEIZURES 01/16/18 acetaminophen 325 mg tablet (Tylenol) 650 mg PO Q6H PRN PRN PAIN #0 tabs 03/08/22 aspirin 81 mg chewable tablet 81 mg PO BREAKFAST heart #1 TAB 03/08/22 atorvastatin 40 mg tablet 40 mg PO QHS cholesterol #30 tabs 03/08/22 clopidogrel 75 mg tablet 75 mg PO DAILY Check with primary doctor #30 tabs 03/08/22 glimepiride 4 mg tablet 4 mg PO BID #60 tabs 03/08/22 insulin degludec 100 unit/mL (3 mL) subcutaneous pen 10 unit (0.1 mL) subcut QHS #6 mL 03/08/22 metformin 500 mg tablet 500 mg PO BIDCM #60 tabs 03/08/22 Hospital Course Operations None Procedures 2-D Echocardiogram ( ECHO/Echo Complete Interpretation Summary Normal LV size. Left ventricular systolic function is normal. The estimated ejection fraction is 60 %. Bubble contrast study negative for right to left interatrial shunt. Trivial tricuspid valve insufficiency.) Summary of Care Provided Minutes Spent on Discharge: 40 Hospital Course: ADENIKE HERNANDEZ, is a 71 YO M with a past medical history of seizure disorder that started in college, colon polyps and actinic keratoses who presented to the ED at [facility] on 02/27/2022 complaining of difficulty speaking and unsteady gait.? He stated that he had awoken that morning with the symptoms but was well when he went to bed.? A noncontrast CT of the brain showed no acute processes.? There was an old thalamic lacunar infarct present.? CTA of the head and neck showed no major intracranial arterial occlusion or hemodynamically significant stenosis.? There was mild atherosclerotic stenosis of the M1 segment of the left MCA and of the left vertebral artery/subclavian arterial junction.? There was also mild plaque present in the right carotid bulb.? Consult was obtained with teleneurology who recommended admission to the hospital, MRI and an echocardiogram.? MRI showed an acute/subacute left pontine infarct and an old right thalamic lacunar infarct.? Echocardiogram showed an ejection fraction of 60% with no regional wall motion abnormalities.? There was no atrial enlargement.? The bubble contrast study was negative for right to left interatrial shunt.? There was no significant valvular heart disease.? Significant lab included a hemoglobin A1c of 10.6, triglycerides of 282, LDL of 168 and a low HDL at 35.? Phenobarbital level was low at 7.4 but he denied any seizures for several years.? He was placed on dual antiplatelet therapy and? atorvastatin 40 mg nightly.? He was seen and evaluated by PT/OT/ST in the hospital and a recommendation was made for acute inpatient rehab.? He was transferred to the rehab unit at [facility] on 02/28/2022 for 3 hours of therapy daily to restore independence/function at or near his level prior to the stroke. BS's at arrival on rehab were ranging from the low 200s up to 321. He was placed on Amaryl 4 mg BID, Glucophage 500 mg with supper and Lantus 10 units at HS. The lunch BS remained increased on this regimen and Glucophage 500 mg was added at breakfast. Blood sugars prior to discharge have been consistently less than 180 with no hypoglycemia. At presentation to rehab Adenike was having difficulty with word finding and he was ataxic with the RUE and the RLE. He had no visual deficits and no neglect. He was impulsive and had poor safety awareness. He would get up and ambulate to the with no assistance despite being admonished to call for help to prevent falls. He did everything fast and was unaware of his deficits. He frequently had LOB due to non-compliance with instructions to slow down and focus on technique rather than speed. Finally on his last day in therapy he slowed down and he did hd no LOB with ambulation without an Assistive device at [facility]. He was able to ascend/descend a flight of stairs with 1 HR with no LOB. He was able to complete the tug test in 11.75 seconds which was a tad slower than the previous week but with increased safety awareness and no loss of balance. He was able to do 12 stands in 30 seconds without the use of his hands. He has ambulated up to 1000 feet on various surfaces independently with no supportive device without increased distractibility and improved awareness the day prior to discharge. He was able to complete most ADL's independently but still requiring supervision for toilet transfer and shower transfer. Adenike still has poor safety awareness at the time of DC. He will be going to his son's home at [place] and will have 24/7 supervision for at least the first 2 weeks. He was instructed that he could not drive until released by Dr. Rowell to drive and after he is released by Dr. Rowell we recommended he follow up with the driving program at [facility] to make sure he will be safe driving. He will have OP therapy at [facility] post DC. He needed no DME at [place]. He requested a new PCP and an appt was arranged with Dr. Na Koch. An appt was arranged for him to follow up with Dr. Garret Souza for diabetes management on the day he was discharged from rehab. An order was put in for a 30 day event monitor prior to DC and he will then follow up with [facility]. This is his second stroke and there was no LVO and atherosclerotic plaque was minimal in the head and neck. I feel it is important to rule out AF as a possible etiology of the strokes. Physical Exam Const alert, oriented x3 and no apparent distress Constitutional Narrative: Making eye contact with me. Normal affect. He is laughing and interacting well with his family. General Appearance: cooperative and well developed HEENT normocephalic, head/scalp atraumatic and moist oral mucous membranes Eyes PERRL, EOMs intact bilaterally and normal visual jefferson by confrontation Eyes Narrative: No visual field cuts Neck No nuchal rigidity, supple, no JVD, No nodes and no carotid bruits General: trachea midline Resp normal respiratory effort, normal air movement, no retractions, no use of accessory muscles and clear to auscultation bilaterally Resp Narrative: Able to speak in complete sentences with no tachypnea. Cardio regular rate, regular rhythm, S1 normal heart sound, S2 normal heart sound, no murmurs, no rub and no gallops Cardio Narrative: No ectopy GI normal to inspection, nondistended, normoactive bowel sounds, soft to palpation and non-tender GI Narrative: No masses, no hepatosplenomegaly and no guarding with palpation. Extremity no clubbing, cyanosis or edema, no calf tenderness and no pedal edema General Extremity: Negative for cyanosis or edema Skin no jaundice Skin Narrative: He is very tanned. General Skin Exam: no breakdown Rashes: no rashes Neuro CN's II-XII intact bilaterally Neuro Narrative: Strength is 5/5 throughout. No ataxia today. still having issues with fine motor coordination of the R hand. He did well with functional tasks with ST today scoring 90-100% accuracy BUT, executive functioning is still significantly impaired. When he slows down he is able to ambulate with no loss of balance without an assistive device. Coordination / Balance: [id number] test normal and [id number] test normal Speech: speech normal and speech abnormal Motor Exam: strength 5/5 throughout Psych Psych Narrative: thought process is slow and he has no regard for safety awarenss. Appearance: appropriate Activity / Motor Behavior: restless Mood & Affect: flat affect Thought Content: No suicidality and No homicidality Weight / BMI Weight Weight: 177 lb 0.499 oz Body Mass Index (BMI) 26.4 ABG / Lab / Microbiology Data Result Diagrams: 03/02/22 05:40 Laboratory: Laboratory Results - last 24 hr 03/07/22 23:11: POC Glucose 135 H 03/08/22 06:25: POC Glucose 111 H Microbiology: Microbiology 03/02/22 14:29 Discharge - Eye Gram Stain - Final 03/02/22 14:29 Discharge - Eye Eye Culture - Final Staphylococcus haemolyticus Staphylococcus epidermidis 03/02/22 14:29 Discharge - Eye Anaerobic Culture - Preliminary Checking for anaerobes, further studies to follow. Indicators for Scoring Admitted with or Primary Diagnosis of CVA/Stroke: Yes Hx of CVA/Stroke: Yes Modified [place] Score MRS Score at time of Evaluation: 1-No significant disability (The MRS at admission to rehab was 3. ) NIHSS NIHSS 1a. Level of Consciousness: Alert; keenly responsive 1b. LOC Questions: Answers BOTH questions correctly. 1c. LOC Commands: Performs both tasks correctly. 2. Best Gaze: Normal 3. Visual: No visual loss 4. Facial Palsy: Normal symmetrical movements 5a. Left Arm: No drift; arm holds 90 (or 45) degrees for full 10 seconds 5b. Right Arm: No drift; arm holds 90 (or 45) degrees for full 10 seconds 6a. Left Leg: No drift; leg holds 30-degree position for full 5 seconds 6b. Right Leg: No drift; leg holds 30-degree position for full 5 seconds 7. Limb Ataxia: Absent 8. Sensory: Normal; no sensory loss 10. Dysarthria: Normal 11. Extinction and Inattention: No abnormality Total: 0 Stroke Questions Stroke Team Activated: No (we are a rehab facility and he had completed stroke prior to rehab transfer) D/C Instructions Discharge Diet: - (2,000 calorie diet with low fat and low salt. ) Weight Bearing Status: Full weight bearing Call your doctor if you observe: Fever of 101 or Higher, Inability to urinate, Shortness of breath, Dizziness, Fainting spells, Swelling in the ankles, Chest pain, Increased palpitations (irregular heartbeat) and Calf discomfort Pending Tests Upon Discharge: none Please Follow Up With: Doretha Koch MD When: Also follow up with Dr. Garret Souza on 03/09/12 at 10 AM. Meaningful Use Info Meaningful Use Diagnoses (Choose all that apply): Ischemic CVA CVA Therapy Assessed for PT,OT and/or ST?: Yes Ischemic Stroke Antithrombotic order at d/c?: Yes Dx of Atrial fib/flutter?: No Anticoagulant at discharge?: No Reason anticoagulant not ordered: Treatment not Indicated (30 day event monitor ordered at DC) Statins at discharge?: Yes Primary Dx Acute Ischemic CVA?: Yes IV tPA ordered during stay?: No Reason IV t-PA not ordered: Treatment not Indicated Discharge Plan Admission Admit Date/Time: 02/28/22 18:15 Primary Reason for Your Visit: Post stroke debility. Attending Provider: Cathleen Bruce Primary Care Provider: Horacio Varela Instructions Patient Instructions: A1C, 5 Steps for Eating Healthier, Discharge Instructions for Stroke, ED Hypoglycemia Oral Diabetic ..., Booklet - Understanding Stroke Additional Instructions / Restrictions: 1. Any time you take medication you are at risk of having a low blood sugar. This is called Hypoglycemia. Some of the symptoms are lightheadedness, nausea, blurry vision, nausea and sweating. If it gets low enough you could have a seizure. You should not skip meals and you should always carry something to eat or drink to take if you have symptoms of hypoglycemia. You can get glucose tabs at any pharmacy and they are easy to carry in your pocket if you are out and about. 2. STROKE WARNING SIGNS: IF you have ANY of these signs call 911 and get to a ER. Time is brain and since you have already had 2 strokes you are at increased risk for another. In order to prevent another stroke going forward there are certain goals you have to keep in mind. BP < 130/80. LDL ( bad cholesterol ) < 70, HGBA1C < 7.0 You do not smoke so I do not have to tell you to stop smoking so I will tell you not to start smoking. Diabetes and High cholesterol are big risk factors for both strokes and cardiac events. If you want to stay independent and functional you will take better care of yourself and keep the goals for BP, LDL and HGBA1C that have been set for you. 1. Sudden numbness or weakness of the face, arm or leg especially if on one side of the body only 2. Sudden confusion, trouble speaking or understanding speech 3. Sudden trouble seeing in 1 eye or both eyes 4. Sudden trouble walking, dizziness, loss of balance or incoordination 5. Sudden severe headache with no known cause 3. We need to make sure that you are not having a problem with the rhythm of the heart called Atrial fibrillation. I am ordering a 30 day event monitor for you and you will have to follow up with a home service technician to go over the results with you. If you are having AFIB then you will need to start an anticoagulant. It may be a good idea to have a stress test at some point in the future to make sure you do not have heart disease. When there is disease in the arteries of the brain or neck there is often disease in the arteries of the heart. You can discuss this with the home service technician. 4. Keep your appts with Dr. Koch......health maintenance is IMPORTANT if you want to stay healthy. 5. You will need some lab drawn in 4-6 weeks to check the cholesterol and a liver panel. Dr. Koch will give you a lab slip to have the blood drawn. 6. Dr. Souza will be able to get you set up with a continuous glucose monitor. 7. If you have any questions after you leave rehab and before you see Dr. Koch please do not hesitate to call me at: OFFICE: [phone] CELL: [phone] I hope you take this stroke seriously Adenike. Some people never recover from a stroke and they end up in a senior living in a diaper with a feeding tube and sometimes lose the ability to speak or understand what people are saying. You were very leonie this time because you are recovering and you will be able to be independent again. Discharge Orders/Prescriptions Prescriptions: New acetaminophen [Tylenol] 325 mg Tablet 650 mg PO Q6H PRN PRN (Reason: PAIN) Qty: 0 0RF glimepiride 4 mg Tablet 4 mg PO BID Qty: 60 0RF insulin degludec 100 unit/mL (3 mL) insulin pen 10 unit subcut QHS Qty: 6 0RF metformin 500 mg Tablet 500 mg PO BIDCM Qty: 60 0RF Continued phenobarbital 64.8 MG tablet 64.8 mg PO DAILY atorvastatin 40 mg tablet 40 mg PO QHS Qty: 30 0RF Rx Instructions: Take this medication at bedtime....it is more effective when taken at bedtime. clopidogrel 75 mg tablet 75 mg PO DAILY Qty: 30 0RF aspirin 81 mg tablet,chewable 81 mg PO BREAKFAST Qty: 1 0RF Rx Instructions: Stop on 03/22/2022. Discontinued enoxaparin [Lovenox] 40 mg/0.4 mL Syringe 40 mg SUBCUT DAILY glyburide 5 mg tablet 10 mg PO BREAKFAST insulin lispro [Humalog KwikPen Insulin] 100 unit/mL insulin pen See Protocol subcut TIDAC Protocol: 3. Sliding Scale Insulin Med Dosing Condition: 150-189 mg/dl = 1 unit Condition: 190-229 mg/dl = 2 units Condition: 230-269 mg/dl = 3 units Condition: 270-309 mg/dl = 4 units Condition: 310-349 mg/dl = 5 units Condition: 350-399 mg/dl = 6 units Condition: 400-449 mg/dl = 7 units Condition: Greater than 449 call physician Protocol Text: - Use for Total Daily Dose of Insulin 37-55 units - Obsese, infected, or steroid patients MEDIUM DOSING ALGORITHIM Other Ambulatory Orders: 30 Day Event Recorder Preventi (Urgent) Location: None Selected Ordered By: Dr. Cathleen Bruce Referrals / Follow Up: Jean Rowell [Other] - 05/26/22 9:20 am (Neurology ) Doretha Koch MD [Med Staff - Active Staff] - 03/15/22 10:30 am (please arrive 30 minutes prior to appointment) Garret Souza MD [Med Staff - Courtesy Staff] - 03/09/22 10:00 am (please arrive 20-30 minutes early) Disposition Disposition (needs filled in before D/C Order can be placed): Home, Self Care Charges/Coding Visit Charges Inpatient E&M: 81527 Disch Hosp
[2022-03-08 19:30] VITALS: BP 128/64; PULSE 66; RESP 14; TEMP 36.8; O2SAT 97
[2022-03-08] MEDS: Insulin Glargine-YFGN 100 UNIT/ML Pen 10 UNIT SC (21:11)
[2022-03-08] MEDS: Atorvastatin Calcium 40 MG Tablet PO (21:20)
[2022-03-08 21:45] LABS: Bedside Glucose 185 mg/dL (74-106)
[2022-03-09 02:03] VITALS: BMI 26.4
[2022-03-09] MEDS: Enoxaparin 40 MG/0.4 ML Syringe SC (05:44)
[2022-03-09] MEDS: Gentamicin Sulfate 1 OPTH.BTL 1 DRP RIGHT EYE ×2 (05:44→09:27)
[2022-03-09] MEDS: metFORMIN HCl 500 MG Tablet PO (07:30)
[2022-03-09] MEDS: Aspirin 81 MG TAB.CHEW PO (07:30)
[2022-03-09 08:06] VITALS: BP 152/74; PULSE 64; RESP 20; TEMP 36.8; O2SAT 96
[2022-03-09] MEDS: Phenobarbital 32.4 MG Tablet 64.8 MG PO (09:27)
[2022-03-09] MEDS: NYSTATIN 500,000 UNIT/5 ML UDC 500000 UNIT PO (09:27)
[2022-03-09] MEDS: Glimepiride 4 MG Tablet PO (09:27)
[2022-03-09] MEDS: Clopidogrel Bisulfate 75 MG Tablet PO (09:27)
--- NOTE | 2022-03-09 09:34 | NURSING ---
pts son in for dc. dc packet printed and went over with pt and son. pt aware of limitations post stroke and went over importance of following medical advice. pt dc'd home via wc with all belongings. insulin pens given to pt's son and aware that dr. bustamante with make recommendations and will need insulin needles as well
== END 2022-03-09 09:40 | disposition home or self-care (01) | DRG 57 ==
PROVIDERS: Admitting Provider Internal Medicine; PCP Family Medicine; Visit Provider Internal Medicine
DX: I69.322 Dysarthria following cerebral infarction (principal); B95.7 Other staphylococcus as the cause of diseases classified elsewhere; E11.9 Type 2 diabetes mellitus without complications; E78.5 Hyperlipidemia, unspecified; G47.8 Other sleep disorders; Z79.4 Long term (current) use of insulin; H10.9 Unspecified conjunctivitis; I69.393 Ataxia following cerebral infarction; I69.392 Facial weakness following cerebral infarction; I69.319 Unspecified symptoms and signs involving cognitive functions following cerebral infarction; Z79.82 Long term (current) use of aspirin; R03.0 Elevated blood-pressure reading, without diagnosis of hypertension; Z79.01 Long term (current) use of anticoagulants; Z79.02 Long term (current) use of antithrombotics/antiplatelets; Z79.899 Other long term (current) drug therapy
CPT/HCPCS: 36415; 76705; 80048; 82962; 83735; 84443; 87070; 87075; 87077; 87186; 87205; 92507; 92522; 92610; 94762; 96125; 97110; 97116; 97129; 97130; 97162; 97166; 97530; 97535; 97537; 97802; 97803; 99251; G0463

== ENCOUNTER 2022-03-22 09:00 | Outpatient (RCR) | payer MEDICARE, SELFPAY ==
--- NOTE | 2022-03-14 11:44 | HP.PTEVAL_ITS ---
Patient's Visit Information ADENIKE HERNANDEZ is a 71 year old M referred to Physical Therapy by Dr. Horacio Varela MD with a diagnosis of stroke. Date of Evaluation: 03/14/22 Physical Therapist: Bennett Blue, DPT, OCS, CSCS - Visit Plan Plan: Pt is doing well physically, will have speech eval and OT eval but does not have any pphysical deficits that require skilled PT at this time. i reviewed the improtance of safety with decision making on power tools and that speech therapy woudl be check him cogjitively but that physically he does real well. - Subjective I had a stroke on 02/27 and trying to rebuild. Was bumping into things and head felt funny. Went to ER and did CATSCAN, AKG and was clear but did show previous stroke. [place] 2-3 days later and in hospital until the 09 of March in the rehab floor. Dtr in law present and states he has safety awareness issues with cognition. She says he is not always aware of his risks. 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 Has been home for 5 days. stayed two days with family and then went home. Doing alot of gardening and feels back to baseline physically. Lives alone in one story house with basement laundry. Has railing and doing well. Dtr in law says he needs to slow down and use rail. Doing all ADLS on his own. Cooked eggs this morning without a problem. Family is cooking for nutrition reasons. No pain or numbness or tingling. Sleeping OK. Driving prior but not since. Doctor told him not to until 05/26. That day he will see neurologist. - Objective Walks into PT I with dtr in law. Steps reciprocal without railing. Transfer bed and chair I.Alert and oriented to person place and time. No balance deficits noted. Follows direction easily. Posture is fair with slight forward head. UE adn LE AROM WFL and without pain. strength UE 4+/5 ion all motions except L er whcih is 4/5. No pain. LE strength 5/5 hip flexion knee flex, ext, DF PF, ev, and inv. 4+ in hip abd and extension B. reflexes 1/3 patella and a chilles and bi and tri symmetrically. Sensation to gross light touch in LE is WNL to gross light touch. coordination is good with reciprocal heel and toe taps and heel to najera tests. toe adn heel walk easily without difficulty. funcitonal floor touches, jumping in place, squats all easy and without safety concerns. - Balance/Special Test Scores Functional Gait Assessment Score: 30 % Disability: 0 CATSIB Score (Max score 120 seconds): 120 Lower Extremity Functional Score: 79 - Rehabilitation Potential Physical Therapy Diagnosis: ricardo - Anticipated Interventions Thank you for the opportunity to evaluate your patient. For Medicare and Medicare HMO plans, please review the plan of care and approve it. It will need to be FAXED BACK to us at [phone] for Medicare purposes. For Medicare only, by signing this I certify the plan of care. Please let me know if there are questions or concerns regarding this plan of care. Physician Signature: Date:
--- NOTE | 2022-03-14 18:30 | HP.SP.EVAL ---
History - History Date of Eval: 03/14/22 Other Relevant Medical History/Diagnoses/Surgery: Shyam is a 71 year old man who was seen at [facility] for a speech and language evaluation. Pt's daughter in law was present for the session. Pt was treated at [facility] for a CVA for 10 days and was released on the . Pt received speech therapy for dysarthria, oral phase dysphagia and executive functioning. 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 Pt was cleared by PT and being evaluated by the OT on Sunday. Smoking Status: Never smoker Hx Smoking: No Hx Tobacco Use: No - Pain Is pain an issue with your current prescribed condition?: No Patient Allergies - Allergies Allergies No Known Allergies Allergy (Verified 03/09/22 10:28) FAVRES - FAVRES FAVRES Administered: Yes FAVRES: Functional Assessment of Verbal Reasoning and Executive Strategies is a standardized test of subtle cognitive- communication difficulties designed specifically for patients with acquired brain injuries including CVA and trauma. This functional measure targets aspects of complex communication, complex expression, verbal reasoning and problem solving, and executive functioning. This tests consists of four verbal reasoning tasks: Planning an event, Scheduling, Making a Decision and Building a case. The standard score is a mean of 100 with a standard deviation of 15. A score of 85 or better is considered within normal limits. Date: 03/14/22 - Planning an Event Accuracy Standard Score: 89 Rationale Standard Score: 69 Time Standard Score: 67 Plan - Plan Plan: Skilled speech therapy is recommended to address mild to moderate deficits in executive functioning and dysarthria. Pt would benefit in training in executive functioning tasks such as planning, safety awareness, verbal reasoning, time management, and communication strategies. Without skilled therapy, Pt is at risk to be unable to return to employment, reduce independence and be unable to effectively communicate with others. - Recommendations Treatment Warranted: Yes Treatment Warranted: Speech Sound Production, Cognition - Progress Prognosis: Excellent - Frequency Frequency: 1x/Week Duration: 4 Weeks - Goal #1-5 Goal #1: Pt will participate in a cognitive linguistic evaluation to determine appropriate goals to address deficits. Goal #2: Pt will complete reasoning, deduction, and planning tasks with 90% acc given min verbal cues. Education - Patient has Indicated that the Following Identified Educational Needs: None The Patient has indicated that they have no educational or learning abilities that may effect their care.: Yes - Patient Instruction Patient Education: Diagnosis, Treatment Plan, Goals, Safety Precautions Person Taught: Patient, Family Teaching Method: Discussion Response to teaching: Verbalize understanding
--- NOTE | 2022-03-21 09:07 | HP.OTEVAL_ITS ---
Patient's Visit Information ADENIKE HERNANDEZ is a 71 year old M, referred to Occupational Therapy by Dr. Horacio Varela MD, with a diagnosis of CVA. 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 levels- has supervision while at work (her pts son) is with him during work hours- Dtr-inn-law has more concerns with pts sugar dropping while pt returns to working in the [employer]- States his sugar has been running low since family is providing meals for pt to assist in mtg. his DM. - ADLs Comments: pt states his laundry is in basement- pt has no difficulty with stairs-. family is doing meals due to new dx of DM. pt is bathing IND. pt is getting Dressed IND. has started going to the [employer] with son - ROM ROM Comments: pt demo full ROM of UE - Strength Shoulder: right 5/5 left 5/5 Elbow: right 5/5 left 5/5 Physical Fitness Trainer: right 75# left 75# Lateral Pinch: right 10# left 12# Tripod Pinch: right 12# left 16# Tip-to-Tip Pinch: right 6# left 12# Strength Comments: pt demo good functional strength - Sensation Sensation Comments: denes - Visual/Perceptual Skills Comments: denies vision changes - Stroke Specific Quality of Life Total SS-QOL Score: 218 - Rehabilitation General Assessment: Pt demo full UB ROM and strength of UB WFL- pt does not demo need a skilled OT services at this time. pt will continue with Speech Therapy for expressive aphasia and testing cognitive status. pt demo understanding and agrees to POC. - Visit Plan TEXT: Thank you for the opportunity to evaluate your patient. For Medicare and Medicare HMO plans, please review the plan of care and approve it. It will need to be FAXED BACK to us at [phone] for Medicare purposes. Please let me know if there are questions or concerns regarding this plan of care. Physician Signature: Date:
--- NOTE | 2022-03-23 14:56 | HP.SP.DC ---
ST Discharge Summary - Discharged: Discharge: Shyam was seen for initial speech/language/cognitive evaluation at [facility] on 03/14/22. Pt attended 1 additional session following initial evaluation to finish his cognitive assessment. Following completion of the evaluation to determine the Pt?s current level of cognitive function, self-report, and family report, Pt deemed appropriate for d/c from speech therapy at this time. Pt discharged from speech therapy caseload on this date, 03/22/22. Thank you for allowing me to participate in the care of your Pt. Will reevaluate at Pt?s request following script from physician.
== END 2022-03-22 19:00 | disposition home or self-care (01) ==
LOC: SP 09:00
PROVIDERS: PCP Internal Medicine; Referring Provider Internal Medicine; Visit Provider Family Medicine
DX: I69.322 Dysarthria following cerebral infarction (principal); I69.321 Dysphasia following cerebral infarction
CPT/HCPCS: 92507; 92523; 97161; 97166

== ENCOUNTER → 2022-08-17 | Outpatient (CLI) | payer MEDICARE, SELFPAY ==
[2022-08-17 13:05] LABS: Microalbumin,Random Urine 24.3 mg/L (NO RANGE EST.); Microalbumin:Creatinine Ratio 19.8 mg/g CRE (<30 mg/g CRE)
== END | disposition home or self-care (01) ==
LOC: LABSPEC 08:33
PROVIDERS: PCP Internal Medicine; Visit Provider Internal Medicine
DX: E11.9 Type 2 diabetes mellitus without complications (principal)
CPT/HCPCS: 82043; 82570

== ENCOUNTER → 2022-08-24 | Outpatient (CLI) | payer MEDICARE, SELFPAY ==
[2022-08-24 13:16] LABS: ALB/GLOB Ratio 1.1 RATIO (0.9-2.4); AST(SGOT) 19 U/L (15-37); Alanine Aminotransfer ALT/SGPT 38 U/L (16-61); Albumin, Serum 3.9 g/dL (3.2-5.0); Alkaline Phosphatase 51 U/L (45-117); Anion Gap 8 (5-15); BUN 23 mg/dL (7-18); BUN/Creat Ratio 24.9 RATIO (10-20); Calcium,Total 9.1 mg/dL (8.5-10.1); Chloride 103 mmol/L (98-107); Cholesterol 150 mg/dL (200); Creatinine, Serum 0.92 mg/dL (0.70-1.30); EST Glomerular Filtration Rate 86 mL/min (>60); Est Glom Filt Rate - Afr Amer 104 mL/min (>60); Globulin 3.6 g/dL (2.2-4.2); Glucose 137 mg/dL (74-106); High Density Lipoprotein 59 mg/dL; Potassium 4.5 mmol/L (3.5-5.1); Protein, Total 7.5 g/dL (6.4-8.2); Sodium Level 137 mmol/L (136-145); Triglycerides 107 mg/dL; Very Low Density Lipoprotein 21 mg/dL (5-40)
== END | disposition home or self-care (01) ==
LOC: BIMLAB 08:06
PROVIDERS: PCP Internal Medicine; Referring Provider Internal Medicine; Visit Provider Internal Medicine
DX: E11.9 Type 2 diabetes mellitus without complications (principal); E78.2 Mixed hyperlipidemia
CPT/HCPCS: 36415; 80053; 80061

== ENCOUNTER → 2023-11-12 | Outpatient (CLI) | payer MEDICARE, OTHER, SELFPAY ==
[2023-11-12 12:37] LABS: Absolute Lymphocyte Count 1.99 X10^3/uL (0.83-4.51); Absolute Neutrophil Count 4.1 X10^3/uL (2.0-7.7); Basophil# 0.04 X10^3/uL; Basophil% 0.6 % (0-1); Hematocrit 42.9 % (40-54); Hemoglobin 14.3 g/dL (13.0-16.5); Lymphocyte # 1.99 X10^3/ul (0.83-4.51); Lymphocyte % 29.4 % (19-41); Mean Corp Hgb Conc 33.3 g/dL (32-36); Mean Corpuscular Hgb 30.1 pg (27.0-32.0); Mean Corpuscular Volume 90.3 fL (80-94); Mean Platelet Vol. 11.1 fl (6.2-12.0); Monocyte# 0.46 X10^3/uL; Monocyte% 6.8 % (0-10); NRBC Flagged by Analyzer 0 % (0-5); Neutrophil # 4.06 X10^3/uL (2.7-7.7); Neutrophil % 59.9 % (47-70); Platelet Count 268 K/mm3 (150-450); RBC Distribution Width SD 42.7 fl (35.1-43.9); Red Blood Count 4.75 M/mm3 (4.6-6.2); White Blood Count 6.8 K/mm3 (4.4-11.0)
[2023-11-12 13:15] LABS: ALB/GLOB Ratio 1.1 RATIO (0.9-2.4); AST(SGOT) 15 U/L (15-37); Alanine Aminotransfer ALT/SGPT 27 U/L (16-61); Albumin, Serum 3.9 g/dL (3.2-5.0); Alkaline Phosphatase 50 U/L (45-117); Anion Gap 4 (5-15); BUN 25 mg/dL (7-18); BUN/Creat Ratio 26.8 RATIO (10-20); Calcium,Total 9.3 mg/dL (8.5-10.1); Chloride 106 mmol/L (98-107); Cholesterol 287 mg/dL (200); Creatinine, Serum 0.93 mg/dL (0.70-1.30); EST Glomerular Filtration Rate 84 mL/min (>60); Est Glom Filt Rate - Afr Amer 102 mL/min (>60); Globulin 3.5 g/dL (2.2-4.2); Glucose 157 mg/dL (74-106); High Density Lipoprotein 40 mg/dL; Potassium 4.5 mmol/L (3.5-5.1); Protein, Total 7.4 g/dL (6.4-8.2); Sodium Level 137 mmol/L (136-145); Triglycerides 298 mg/dL; Very Low Density Lipoprotein 60 mg/dL (5-40)
[2023-11-12 13:34] LABS: Microalbumin:Creatinine Ratio 10.3 mg/g CRE (<30 mg/g CRE)
== END | disposition home or self-care (01) ==
LOC: BIMLAB 08:00
PROVIDERS: PCP Internal Medicine; Referring Provider Internal Medicine; Visit Provider Internal Medicine
DX: E11.9 Type 2 diabetes mellitus without complications (principal); E78.2 Mixed hyperlipidemia; Z86.73 Personal history of transient ischemic attack (TIA), and cerebral infarction without residual deficits
CPT/HCPCS: 36415; 80053; 80061; 80184; 82043; 82570; 85025